=== PATIENT | male | born 1985 | race Caucasian/White ===

== ENCOUNTER 2025-08-25 22:58 | Inpatient (IN) | payer BC, SELFPAY ==
[2025-08-25] VITALS (7 sets, daily range): BP systolic 118–163; BP diastolic 65–88; BMI 55.5
[2025-08-25 19:25] LABS: Hematocrit 32.2 % (39.0-52.0); Hemoglobin 11.5 g/dL (13.0-18.0); Mean Corp Hgb Conc. 35.7 g/dL (33.0-37.0); Mean Corpuscular Volume 89.0 fL (80.0-94.0); Nucleated Red Blood Cells % 0 % (-); Platelet Count 102 10^3/uL (130-400); Red Cell Dist. Width 12.0 % (11.5-14.5)
[2025-08-25 19:35] LABS: INR 1.27; PT 16.4 Sec (11.4-14.6)
[2025-08-25 19:36] LABS: APTT 40.2 Sec (23.4-35.0)
[2025-08-25 19:49] LABS: ALT (SGPT) 67 U/L (0-50); AST (SGOT) 286 U/L (17-59); Albumin 4.3 g/dl (3.5-5.0); Alkaline Phosphatase 61 U/L (38-126); Blood Urea Nitrogen 63 mg/dl (9-20); Calcium 7.4 mg/dl (8.4-10.2); Carbon Dioxide 11 mmol/L (22-30); Chloride 70 mmol/L (98-107); Glucose 79 mg/dl (70-99); Potassium 4.1 mmol/L (3.5-5.1); Sodium 103 mmol/L (135-145); Total Protein 7.2 g/dl (6.3-8.2)
[2025-08-25 19:56] LABS: eGFR 10.07
--- NOTE | 2025-08-25 20:13 | ED.GENMED ---
History of Present Illness
General
Chief Complaint: Rectal Bleeding
Source: patient and spouse
Time Seen by Provider: 08/25/25 19:51
History of Present Illness
History of Present Illness:
40-year-old male presents to the emergency room for evaluation of diarrhea for the past 2 weeks essentially. Over the past week or so stools have had blood in them. Had multiple episodes a day. Patient is feeling fatigue and lack of energy. Over
the past couple days has been feeling short of breath and dizzy. He is noted the sensation of tension or stretching in his calfs and back. Patient has a history of diabetes and high blood pressure. Patient was hospitalized at [facility]
several years ago for a similar episode. At that time he had acute renal failure and electrolyte abnormalities. He has been taking Pepto-Bismol tablets for the diarrhea. Patient endorses fairly heavy alcohol use. He consumes about 1/5 of vodka a
day. Because of the diarrhea and other symptoms he has been consuming less alcohol. Patient had some nausea and vomiting. The vomitus is bilious in nature. He denies any significant abdominal pain.
Phy Exam
Physical Exam
Physical Exam:
General: Awake, Alert, Oriented X3. No acute distress.
Vitals: Afebrile, mildly hypertensive
Head: Atraumatic
Eyes: Pupils equal, EOMI
Throat: Airway intact, no exudates, dry mucosa
Neck: Trachea midline
Lungs: Clear and equal b/l
Heart: Regular rate, no murmurs
Abd: Soft, Nontender, No pulsatile mass
Neuro: Nonfocal
Skin: Warm, dry, no rash
Extremities: pulses equal b/l, 2+ edema
Course
Orders/Labs/Results
Orders:
Orders
08/25/25 18:29
EKG [Electrocardiogram (*1)] Urgent
Reason for Study: Shortness of Breath
IV Insert/Care/Rem.- Treatment PRN
08/25/25 18:30
EKG- Treatment ONCE
08/25/25 19:15
Type+Screen Urgent
Alcohol Urgent
Complete Blood Count/With Diff Urgent
Comprehensive Metabolic Panel Urgent
Creatine Phosphokinase Urgent
PTT Urgent
Prothrombin Time Urgent
Salicylate Urgent
08/25/25 20:02
Comprehensive Metabolic Panel Urgent
08/25/25 20:09
Bladder Scan- Treatment ONCE
Osmolality, Random Urine Urgent
Date Specimen was Collected: 08/25/25
Time Specimen was Collected: 22:26
Urinalysis Urgent
Date Specimen was Collected: 08/25/25
Time Specimen was Collected: 22:26
Urine Sodium Urgent
Date Specimen was Collected: 08/25/25
Time Specimen was Collected: 22:26
08/25/25 20:11
Add On- LAB Urgent
Tests Added?: etoh
08/25/25 20:12
CT Abd/pel Without Iv Or Oral Urgent
Comment:
Reason For Exam: acute renal failure
08/25/25 20:13
Add On- LAB Urgent
Tests Added?: cpk
08/25/25 20:15
C DIFF [C difficile Antigen & Toxins] Urgent
LALO Source: Feces/Stool
Specimen Description:
Date Specimen was Collected: 08/25/25
Time Specimen was Collected: 22:26
Stool Culture Urgent
LALO Source: Feces/Stool
Specimen Description:
Date Specimen was Collected: 08/25/25
Time Specimen was Collected: 22:26
08/25/25 20:17
CR Chest - 2 Views Urgent
Comment:
Reason For Exam: sob
08/25/25 20:18
Venous Blood Gas Urgent
%Oxygen/Room Air: ra
08/25/25 20:20
Add On- LAB Urgent
Tests Added?: salicylate level
08/25/25 21:00
3% Sodium Chloride 250 ml [Sodium Chloride 3%] 250 ml IV ONCE
08/25/25 21:02
0.9% Sodium Chloride 1000 ml [Nss] 1,000 ml IV BOLUS
08/25/25 21:15
0.9% Sodium Chloride 1000 ml [Nss] 1,000 ml IV 200 mls/hr
08/25/25 21:41
Urine Creatinine Routine
Date Specimen was Collected: 08/25/25
Time Specimen was Collected: 22:27
08/25/25 22:05
0.9% Sodium Chloride 1000 ml [Nss] 1,000 ml IV BOLUS
Abnormal Lab Results
08/25/25 08/25/25 08/25/25
19:15 20:02 20:18
RBC 3.62 L 10^6/uL
(4.70-6.10)
Hgb 11.5 L g/dL
(13.0-18.0)
Hct 32.2 L %
(39.0-52.0)
MCH 31.8 H pg
(27.0-31.0)
Plt Count 102 L 10^3/uL
(130-400)
Absolute Lymphs (auto) 0.2 L 10^3/uL
(1.2-3.4)
Neutrophils % 88.6 H %
(42.2-75.2)
Lymphocytes % 3.8 L %
(20.5-51.1)
PT 16.4 H Sec
(11.4-14.6)
APTT 40.2 H Sec
(23.4-35.0)
VBG pH 7.24 L
(7.32-7.43)
VBG pCO2 31 L mmHg
(35-48)
VBG pO2 84 H mmHg
(30-50)
VBG HCO3 13.3 L mmol/L
(22-27)
Sodium 103 L* mmol/L 104 L* mmol/L
(135-145) (135-145)
Chloride 70 L mmol/L 69 L mmol/L
(98-107) (98-107)
Carbon Dioxide 11 L* mmol/L 14 L* mmol/L
(22-30) (22-30)
BUN 63 H mg/dl 65 H mg/dl
(9-20) (9-20)
Creatinine 6.6 H* mg/dL 6.8 H* mg/dL
(0.7-1.3) (0.7-1.3)
Calcium 7.4 L mg/dl 7.6 L mg/dl
(8.4-10.2) (8.4-10.2)
Total Bilirubin 2.5 H mg/dl 2.6 H mg/dl
(0.2-1.3) (0.2-1.3)
AST 286 H U/L 288 H U/L
(17-59) (17-59)
ALT 67 H U/L 67 H U/L
(0-50) (0-50)
Creatine Kinase 19541 H U/L
(55-170)
Salicylates < 1.0 L mg/dl
(2.0-20.0)
08/25/25 20:00
08/25/25 20:02
Vital Signs
Initial and Last Documented VS:
Initial Vital Signs
Temp Pulse Resp BP Pulse Ox
97.9 F 103 26 163/88 96
08/25/25 18:26 08/25/25 18:26 08/25/25 18:26 08/25/25 18:26 08/25/25 18:26
Last Documented Vital Signs
Temp Pulse Resp BP Pulse Ox
97.9 F 97 22 121/77 96
08/25/25 18:26 08/25/25 22:00 08/25/25 22:00 08/25/25 22:00 08/25/25 22:26
MDM/Problems Addressed
Differential Diagnosis Includes:
Acute colitis, diverticular bleed, hemorrhoidal bleeding, symptomatic anemia
MDM/Problems Addressed:
Patient presents emergency room complaining of diarrhea with some bloody stools for the past 2 weeks. Patient began feeling short of breath, weak and dizzy. Labs obtained in triage were quite abnormal. Fortunately his hemoglobin is fine at 11.5.
His white count is normal. Platelet count is mildly low at 102. Chemistries are markedly abnormal. Initial sodium was measured at 103 Chloride at 70, bicarb of 11. BUN and markedly elevated as well at 63 and 6.6. Given the significant
abnormalities of the blood work repeat specimen was sent which essentially confirmed these findings. Suspect the patient has become profoundly hyponatremic from fluid loss and solute loss via diarrhea. Patient has been drinking a lot of water
resulting in dilution of his electrolytes particularly sodium. Case discussed with nephrology, Dr. Nguyễn. He recommends fluid resuscitation with normal saline. We discussed hypertonic saline given the extent to which the patient has hyponatremia.
However he was concerned the patient may correct too rapidly. Dr. Donaldson actually came to the emergency room to evaluate the patient. Patient admitted to the intensive care unit. Hospitalist came to evaluate the patient as well.
*Radiology
Radiology exam reviewed: radiology read reviewed
*Pulse Oximetry
SaO2: 96
Oxygen Mode of Delivery: Room air
Patient hypoxic: no
*EKG
Interpreted by ED Provider?: Yes
Heart Rate: 96
Rate: normal
Rhythm: sinus
Interval: first degree heart block
QRS Pattern: normal QRS
Ischemia: non-specific ST changes
*Lithographic Press Operator Apprentice Interpretation
Rate: normal
Interpretation: normal
Rhythm: sinus
*Critical Care Note
Total Time (30-74mins, 75-104mins- exclusive of procedures): 45 min
comment:
Critical care statement: A total of 45 minutes of critical care time was provided for this patient. This includes management of unstable vital signs, evaluation of the patient at bedside, reviewing the patient's pertinent medical records, discussion
with consultants, review of old EKGs and review of pertinent medical records. This time with separate from time utilized to perform the aforementioned documented procedures
ED Attending Note
-
Portions of this chart may have been created with voice recognition software.� Occasional wrong word or��sound alike� substitutions may have occurred due to the inherent limitations of voice recognition software.
Discharge Plan
Departure
Patient Disposition: Admit
Date of Disposition: 08/25/25
Time of Disposition: 21:06
Admit to: ICU
Presentation/result/management discussed w/ accepting MD/DO: Hospitalist
Condition: Critical
Discharge Problem:
Acute hyponatremia, Acute renal failure (ARF), Acute colitis
Prescriptions:
No Action
atorvastatin 40 mg Tablet
40 mg PO DAILY
glipizide 10 mg Tablet
10 mg PO DAILY
metformin 1,000 mg Tablet
1,000 mg PO DAILY
sertraline 25 mg Tablet
25 mg PO DAILY
gabapentin 100 mg Capsule
100 mg PO DAILY
olmesartan 20 mg Tablet
20 mg PO DAILY
fenofibrate 150 mg Capsule
145 mg PO DAILY
Jardiance 10 mg Tablet
10 mg PO DAILY
Mounjaro 7.5 mg/0.5 mL Pen Injector
7.5 mg SC QWEEK
Referrals:
Homer Aquino MD [Family Provider]
Interventions
Interventions:
*Risk Screen - Suicide Last Done: 08/25/25 18:26
*General Assessment Last Done: 08/25/25 18:26
*Neglect/Abuse Screening Last Done: 08/25/25 18:26
*ED- Fall Risk Assessment Last Done: 08/25/25 19:06
*ED COVID-19 Vaccine History Last Done: 08/25/25 19:06
*ED Influenza Vaccine History Last Done: 08/25/25 19:06
KV-Kkovji-Usngqweopt Assessment Last Done: 08/25/25 19:02
ED- Cardiac Assessment Last Done: 08/25/25 19:02
ED- Pulmonary Assessment Last Done: 08/25/25 19:02
Discharge Date and Time
Print Language: PERUVIAN
[2025-08-25 20:22] LABS: Venous Blood Gas B.E. -12.9 mmol/L (-4 to +4); Venous Blood Gas O2 Sat % 96.7 %
[2025-08-25 20:45] LABS: ALT (SGPT) 67 U/L (0-50); AST (SGOT) 288 U/L (17-59); Albumin 4.4 g/dl (3.5-5.0); Alkaline Phosphatase 60 U/L (38-126); Blood Urea Nitrogen 65 mg/dl (9-20); Calcium 7.6 mg/dl (8.4-10.2); Carbon Dioxide 14 mmol/L (22-30); Chloride 69 mmol/L (98-107); Estimated Creatinine Clearance 20 ml/min; Glucose 75 mg/dl (70-99); Potassium 4.1 mmol/L (3.5-5.1); Sodium 104 mmol/L (135-145); Total Protein 7.3 g/dl (6.3-8.2); eGFR 9.72
[2025-08-25 20:53] LABS: Salicylate < 1.0 mg/dl (2.0-20.0)
[2025-08-25] MEDS: SODIUM CHLORIDE 3% 250 IV (20:56)
[2025-08-25] MEDS: NSS 1000 IV ×2 (21:06→22:16)
--- NOTE | 2025-08-25 22:06 | HPS.HSE ---
Family Physician
-
Family Physician: Homer Aquino
Chief Complaint
-
Diarrhea
History of Present Illness
This is a 40-year-old male with past medical history significant for diabetes, hyperlipidemia, hypertension who presents to the emergency department with 2 weeks of persistent diarrhea which is nonbloody.
Patient reported that diarrhea started about 2 weeks ago. Initially it was watery going up to 10 times a day and during the night as well. Now he has intermittent bright red blood per rectum with diarrhea. He has a history of hemorrhoids and he
last had a colonoscopy about 5 years ago which confirmed internal hemorrhoids. Despite diarrhea patient has been able to tolerate oral intake but he has only been taking in water. Spouse reports that he takes about 60 to 90 ounces of water with
ice every day in addition to 1/2 pint of vodka. He also mixes vodka with some Gatorade. He has not been taking oral p.o. in part due to taking Mounjaro which he has been on for over a year. Sertraline was recently started. But it has been held
for the last few days. Denies any known sick contacts. Denies having fevers. He has had occasional chills. He reports that he has been fishing more recently and does have an aquarium at home. He denies any other exposures. Denies dizziness or
lightheadedness at this time. Last alcohol drink was about 1 year ago.
In the emergency department patient was afebrile, blood pressure was 118/70 supine with a pulse of 98 and satting 96% on room air. CBC was unremarkable. Electrolytes notable for a sodium of 104 bicarb of 14 BUN of 67 and a creatinine of 6.8.
Glucose was 75. Calcium 7.6. CK was elevated at 11,000. pH 7.2 follow-up with pCO2 of 31 and a bicarb of 13. Anion gap was 20.
A CT of the abdomen pelvis showing severe bilateral renal and perirenal edema, mild distention of the right intrarenal collecting system and right renal pelvis. There is mild acute pancolitis.
Medical History
Past Medical History
Past Medical History: Reports HTN, Hypercholesterolemia and NIDDM
Past Surgical History: Reports None
Social History
Tobacco: Non-smoker
Alcohol: Daily
Drug: None
Personal:
Living: With Family
Family History
Family History: Not pertinent
Allergies / Home Medications
Allergies reflects when Allergies were last updated in [facility].
Home Medications with original date entered in [facility]
Allergy/Medication List:
Allergies
Allergy/AdvReac Type Severity Reaction Status Date / Time
No Known Allergies Allergy Unverified 08/25/25 18:29
Home Medications
atorvastatin 40 mg tablet 40 mg PO DAILY 08/25/25
empagliflozin 10 mg tablet (Jardiance) 10 mg PO DAILY 08/25/25
fenofibrate 150 mg capsule 145 mg PO DAILY 08/25/25
gabapentin 100 mg capsule 100 mg PO DAILY 08/25/25
glipizide 10 mg tablet 10 mg PO DAILY 08/25/25
metformin 1,000 mg tablet 1,000 mg PO DAILY 08/25/25
olmesartan 20 mg tablet 20 mg PO DAILY 08/25/25
sertraline 25 mg tablet 25 mg PO DAILY 08/25/25
tirzepatide 7.5 mg/0.5 mL subcutaneous pen injector (Mounjaro) 7.5 mg SC QWEEK 08/25/25
Review of Systems
-
Constitutional: Reports No Symptoms
EENT: Reports No Symptoms
Respiratory: Reports No Symptoms
Cardiac: Reports No Symptoms
Abdomen/GI: Reports Diarrhea and Bloody Stools; Denies Abdominal Pain
: Reports No Symptoms
Musculoskeletal: Reports No Symptoms; Denies Joint Pain, Joint Swelling, Muscle Pain, Muscle Stiffness or Edema
Skin: Denies Rash
Neurological: Reports No Symptoms
Endocrine: Reports No Symptoms
Hematologic/Lymphatic: Reports No Symptoms
Psych: Reports No Symptoms
Physical Exam
Vital Signs
Vital Signs
Temp Pulse Resp BP Pulse Ox
97.9 F 98 14 118/70 96
08/25/25 18:26 08/25/25 21:15 08/25/25 21:15 08/25/25 21:00 08/25/25 21:15
Physical Exam
General: Well Developed, Well Nourished and No Apparent Distress
HEENT: NormoCephalic, Moist mucous membranes and Atraumatic
Respiratory: Clear
Cardiac: S1/S2 and Regular Rhythm; No Murmur or Rub
GI: Soft, Non Tender, Non Distended and Normal Bowel Sounds; No Organomegaly
Rectal: Deferred by Provider
Musculoskeletal: No Clubbing, No Cyanosis and No Edema
Skin: No Rash
Neuro: AO x 3 and Nonfocal/grossly intact
Psych: Calm
Laboratory Results
-
08/25/25 20:00
08/25/25 20:02
Laboratory Results
PT 16.4 Sec (11.4-14.6) H 08/25/25 19:15
INR 1.27 08/25/25 19:15
APTT 40.2 Sec (23.4-35.0) H 08/25/25 19:15
Total Bilirubin 2.6 mg/dl (0.2-1.3) H 08/25/25 20:02
AST 288 U/L (17-59) H 08/25/25 20:02
ALT 67 U/L (0-50) H 08/25/25 20:02
Alkaline Phosphatase 60 U/L (38-126) 08/25/25 20:02
Data Reviewed
-
CT Scan: Report Reviewed by me
Medical Tests (Nuc Med, Echo, EKG etc): Image Personally Visualized and interpreted
Lab Data: Labs Reviewed by me
Old Records: Reviewed
Impression/Plan
-
IMPRESSION:
40-year-old with history of ofu-uswvyih-jfdkurtnh diabetes hypertension, hyperlipidemia who presents to the Emergency Department with 2 weeks of diarrhea and found to have NICOLAS as well severe hyponatremia.
PLAN:
Hyponatremia -sodium 104. Patient alert and oriented and with normal mental status. No history of seizures. He is on sertraline. Suspect this is a mixture of hypovolemic hyponatremia with polydipsia and also complicated by inability to excrete
free water in the setting of renal failure. By history is markedly dehydrated. He has been seen by nephrology and appreciate recommendations.
-Admit to IMU due to frequent serum chemistry
-Replete crystalloids per nephrology 5 L total of NS continued
- Urine osms, urine sodium, TSH and cortisol
-Monitor serum sodium every 4 hours
Diarrhea -acute to subacute diarrhea and occasionally bloody
- C. difficile, stool cultures, stool WBC, fecal calprotectin
-Stool O&P
- History of colonoscopy about 5 years ago which was negative for IBD
- hold antibiotics pending results of cultures
- Given severity of diarrhea and blood (known internal hemorrhoid) = consult GI
- Diet as tolerated for with free water restriction
NICOLAS -suspect ATN in the setting of severe diarrhea, diabetes and ARB use but clearly still volume down. Unclear if oliguric at this time. CPK of 11,000, possible rhabdo contributing to the NICOLAS unclear
- Check urine creatinine and sodium for FENa
- IV fluids as above per nephrology
- UA, inflammatory panel with RF, CARLITOS, Complement C3/4, ASO.
Rhabdo - No history of crush syndrome, seizures or fevers
- hold atorvastatin
- inflammatory panel as above
- trend ck q 12 to daily for now
- IV fluids
DM II
- hold metformin
- sliding scale insulin
ETOH dependence - last drink 24 hours ago
- MSAS protocol
--- NOTE | 2025-08-25 22:25 | W.CON.NEPH ---
Consultation
-
Date/Time Consultation Requested: 08/25/2025 9 PM
Date/Time Consultation Performed: 08/25/2025 10 PM
Requesting Provider: Dr. Ng
Performing Provider: Dr. Nguyễn
Reason for Consultation: NICOLAS
Medical History
-
Chief Complaint: Diarrhea
History of Present Illness:
This is a 40-year-old gentleman who has diabetes mellitus type 2 for the last 13 years treated with insulin therapy as well as metformin and Mounjaro. He is also on Jardiance. He does not check his sugars very often. About 4 weeks ago he had a
hypoglycemic episode and his glipizide was discontinued. He checked his sugars a few more times until they were normal and then stop checking. He has hypertension also for the same amount of time on a mild therapy regimen alone with olmesartan.
He also has hyperlipidemia which is controlled with statin therapy and fenofibrate. He does have diabetic neuropathy for which he takes gabapentin. For the last 9 to 14 days he has had increasing amounts of diarrhea which is typically watery in
nature. At least 5 times per day and more recently up to 10 times per day. His appetite is decreased and his intake of solid foods has also declined. He tries to drink enough fluid and over the course of a day will drink 750 mL of vodka, 40
ounces of Gatorade, over 100 ounces of water. He is not left at home because of the frequency of diarrhea. He denies any falls or orthostasis. He did have an injury though this was back when he was hypoglycemic. Given the persistent diarrhea you
came to the emergency room for evaluation. He was found to have a sodium level of 104 with a creatinine of 6.8. He also had anion gap metabolic acidosis. His LFTs are elevated though not Nestl� more than usual for him outpatient blood work he
says was due to his increased alcohol intake. He is noted also to have rhabdomyolysis with a CPK greater than 11,000.
Past Medical History
Diabetes mellitus type 2
Obesity
Hyperlipidemia
Hypertension
Neuropathy
COVID
Anxiety/depression
Social History
Tobacco: Non-Smoker
Alcohol: Daily
Family History
No CKD
Family History: Not Pertinent
Allergies / Home Medications
Allergy/AdvReac Type Severity Reaction Status Date / Time
No Known Allergies Allergy Unverified 08/25/25 18:29
�Medication �Instructions �Recorded �Confirmed �Type
atorvastatin 40 mg tablet 40 mg PO DAILY 08/25/25 08/25/25 History
empagliflozin 10 mg tablet 10 mg PO DAILY 08/25/25 08/25/25 History
(Jardiance)
fenofibrate 150 mg capsule 145 mg PO DAILY 08/25/25 08/25/25 History
gabapentin 100 mg capsule 100 mg PO DAILY 08/25/25 08/25/25 History
glipizide 10 mg tablet 10 mg PO DAILY 08/25/25 08/25/25 History
metformin 1,000 mg tablet 1,000 mg PO DAILY 08/25/25 08/25/25 History
olmesartan 20 mg tablet 20 mg PO DAILY 08/25/25 08/25/25 History
sertraline 25 mg tablet 25 mg PO DAILY 08/25/25 08/25/25 History
tirzepatide 7.5 mg/0.5 mL 7.5 mg SC QWEEK 08/25/25 08/25/25 History
subcutaneous pen injector
(Izabela)
Review of Systems
-
No mental status changes according to the
No pain, no shortness of breath
Denies issues with urination though frequency has decreased but color has not changed
All other systems: Negative unless noted
Physical Exam
Vital Signs
Vital Signs
Temp Pulse Resp BP Pulse Ox
97.9 F 98 14 118/70 96
08/25/25 18:26 08/25/25 21:15 08/25/25 21:15 08/25/25 21:00 08/25/25 21:15
Lab Results
WBC Cancelled 08/25/25 20:00
RBC Cancelled 08/25/25 20:00
Hgb Cancelled 08/25/25 20:00
Hct Cancelled 08/25/25 20:00
Plt Count Cancelled 08/25/25 20:00
Sodium 104 mmol/L (135-145) L* 08/25/25 20:02
Potassium 4.1 mmol/L (3.5-5.1) 08/25/25 20:02
Chloride 69 mmol/L (98-107) L 08/25/25 20:02
Carbon Dioxide 14 mmol/L (22-30) L* 08/25/25 20:02
BUN 65 mg/dl (9-20) H 08/25/25 20:02
Creatinine 6.8 mg/dL (0.7-1.3) H* 08/25/25 20:02
eGFR 9.72 08/25/25 20:02
Glucose 75 mg/dl (70-99) 08/25/25 20:02
Calcium 7.6 mg/dl (8.4-10.2) L 08/25/25 20:02
Albumin 4.4 g/dl (3.5-5.0) 08/25/25 20:02
Laboratory Tests
08/25/25
19:15
Creatine Kinase 99124 H
Salicylates < 1.0 L
Alcohol, Quantitative 59
CT abdomen pelvis without contrast 08/25/2025
IMPRESSION:
1. SEVERE BILATERAL RENAL and PERIRENAL EDEMA. Mild distention of the right intrarenal collecting system and right renal pelvis. Diagnostic possibilities are (1) acute bilateral infectious pyelonephritis or (2) an acute inflammatory renal disease
(vasculitis or connective tissue disease).
2. MILD ACUTE PANCOLITIS (either infectious or inflammatory in etiology).
3. Severe diffuse hepatic steatosis.
4. Severe hepatomegaly.
5. Moderate splenomegaly.
6. Mild acute cystitis.
7. 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
Physical Exam
Patient is awake alert oriented and in no distress. Mood and affect were pleasant, insight and judgment were good. Pupils are equal round and reactive to light, extraocular movements are intact, sclera were anicteric. Hearing was normal, ears and
nose are intact. Oropharynx was clear. Neck was supple with trachea midline and no thyromegaly. Heart was regular rate and rhythm without rubs. Lower extremities without edema. Lungs were clear to auscultation bilaterally and with normal
excursion. Abdomen was soft, nontender, with normal active bowel sounds, and no hepatosplenomegaly. Skin was without rash and with normal turgor.
Data Reviewed
-
Radiology: Image Personally Visualized and interpreted (Chest x-ray 08/25/2025 by reading elevated right hemidiaphragm no acute disease)
CT Scan: Report Reviewed by me
Medical Tests (Nuc Med, Echo etc): Image Personally Visualized and interpreted (EKG 08/25/2025 by my reading sinus rhythm first-degree AV block nonspecific interventricular conduction delay, lateral ST elevation)
Labs: Labs Reviewed by me
Old Records: Reviewed
Assessment/Plan
-
Assessment
Colitis
Large-volume diarrhea
Hyponatremia
Anion gap metabolic acidosis
Acute kidney injury
Rhabdomyolysis
Elevated liver function tests
Chronic alcohol use
Diabetes mellitus type 2
Hypertension
Hyperlipidemia
Plan
Volume resuscitation with saline at this time up to 5 L
Follow BMP every 4 hours
Check lactate
Check urine studies, straight cath if needed
PVR was only 72 cc
Check phosphate
No emergent need for dialysis currently.
Avoid hypertonic saline at this point until urine studies return and urine output trend is established
I discussed with the patient and his the possible need for dialysis should his renal function fail to improve. This would also need to be entertained if there is consideration for metformin toxicity based on evolution of his acid-base balance
over time.
Critical care time spent 45 minutes
[2025-08-25 22:42] LABS: Urine Character Clear (Clear)
[2025-08-25 22:50] LABS: Urine Squamous Cell 0-2 /LPF (Few)
[2025-08-25 22:52] LABS: Urine White Cell 0-2 /HPF (0-5)
[2025-08-25 23:56] LABS: Glucose - Point of Care 82 mg/dl (70-99)
[2025-08-26] VITALS (18 sets, daily range): BP systolic 108–169; BP diastolic 59–120; BMI 39.5
[2025-08-26] MEDS: NSS 1000 IV (00:31)
[2025-08-26 01:00] LABS: Blood Urea Nitrogen 64 mg/dl (9-20); Calcium 7.3 mg/dl (8.4-10.2); Carbon Dioxide 11 mmol/L (22-30); Chloride 71 mmol/L (98-107); Glucose 76 mg/dl (70-99); Potassium 4.0 mmol/L (3.5-5.1); Sodium 105 mmol/L (135-145)
[2025-08-26] MEDS: HEPARIN 5000 UNITS SC (01:10)
[2025-08-26] MEDS: NSS 2000 IV (01:10)
[2025-08-26 01:12] LABS: Estimated Creatinine Clearance 21 ml/min; eGFR 10.26
--- NOTE | 2025-08-26 01:14 | PTCARENOTE ---
rec'd pt from ER. full assessment documented. continue orders to finish 5L NS bolus. pt oriented x3, at bedside. updated on plan of care overnight. BMP sent. SR on monitor. on RA, SOB noted w/ exertion. pt ambulated to BR for bowel movement.
MSAS 3. call melchor in reach.
--- NOTE | 2025-08-26 02:02 | PTCARENOTE ---
pt with small bloody liquid BM, stool sample sent, ICU CHEMICAL LAB SUPERVISOR made aware.
[2025-08-26] MEDS: CALCIUM GLUCONATE 130 MG IV ×2 (02:29→06:08)
[2025-08-26] MEDS: ATIVAN 1 MG PO ×2 (04:23→20:28)
--- NOTE | 2025-08-26 04:33 | PTCARENOTE ---
AM labs sent. MSAS 6, PO ativan given. pt OOB in chair. calcium repleted overnight. call melchor in reach.
[2025-08-26 04:40] LABS: Hematocrit 28.0 % (39.0-52.0); Hemoglobin 10.2 g/dL (13.0-18.0); Mean Corp Hgb Conc. 36.4 g/dL (33.0-37.0); Mean Corpuscular Volume 89.5 fL (80.0-94.0); Platelet Count 96 10^3/uL (130-400); Red Cell Dist. Width 11.9 % (11.5-14.5)
[2025-08-26 04:51] LABS: INR 1.42; PT 17.8 Sec (11.4-14.6)
[2025-08-26 04:52] LABS: APTT 39.5 Sec (23.4-35.0)
[2025-08-26 05:19] LABS: Albumin 3.8 g/dl (3.5-5.0); Blood Urea Nitrogen 63 mg/dl (9-20); Calcium 7.3 mg/dl (8.4-10.2); Carbon Dioxide 10 mmol/L (22-30); Chloride 77 mmol/L (98-107); Estimated Creatinine Clearance 22 ml/min; GGTP 277 U/L (15-73); Glucose 74 mg/dl (70-99); LDH 440 U/L (120-246); Magnesium 1.1 mg/dl (1.6-2.3); Potassium 4.0 mmol/L (3.5-5.1); Sodium 108 mmol/L (135-145); eGFR 10.07
[2025-08-26 05:27] LABS: Cortisol, Random 52.9 ug/dl; TSH 3.56 uIU/ml (0.47-4.68)
[2025-08-26] MEDS: MAGNESIUM SULFATE 50 IV ×2 (05:57→13:28)
[2025-08-26] MEDS: SODIUM BICARBONATE 1150 MEQ IV ×3 (06:07→23:51)
--- NOTE | 2025-08-26 06:26 | CON.GI ---
Addendum entered and electronically signed by Emil Lawson MD 08/26/25 16:07:
I saw and examined the patient.
The PA's note was reviewed and I agree with the note.
Comment:
Pt is a 40 year old male with h/o HTN, hyperlipidemia, GERD, DM, major depression d/o, anxiety, EUNICE, and ETOH abuse who p/w diarrhea and rectal bleeding. Has been drinking significant amount of alcohol since job loss in May, perhaps combined
with depression. Started Zoloft about 3 weeks ago. Admits to some NSAID use. On admission he's noted to have profound hyponatremia (Na 103), CK 11k. CT abd showed severe b/l renal/urban renal edema and features concerning for acute b/l infectious
pyelonephritis vs inflammatory, mild acute pancolitis, severe hepatic steatosis and splenomegaly.
Impression / Rec:
1. Diarrhea - has associated pancolitis noted from CT, the etiology is unclear. Stool studies pending. Since admission, diarrhea/rectal bleeding is slowing down. In current clinical picture, mx conservatively for now, can [place] pass back once his
hyponatremia/rhabo are mx'ed first.
2. Alcoholic hepatitis - significant drinking and on admission he's noted to have elevated LFT in alc hep pattern. DF is < 32, no steroid indicated. Monitor for alcohol withdrawal. Thiamine/folate. Alcohol counseling.
3. Hyponatremia - mx as per ICU
4. Rhabdomyolysis - mx as per ICU
Addendum entered and electronically signed by SADAF Neil 08/26/25 14:14:
reviewed with Dr. Lawson likely component of ETOH hepatitis. DF with control of 13 is 24.7 no role for steroids. Reviewed with Dr. Dmitry brewer for abx as still with some rectal bleeding and pancolitis though not pain on exam.
Original Note:
Consultation
-
Date/Time Consultation Requested: 08/25/25 4390
Date/Time Consultation Performed: 08/26/25 0630
Requesting Provider: Gabriella Gonzalez MD
Performing Provider: SADAF Griffin, Emil Lawosn MD
Reason for Consultation: pancolitis, diarrhea
Medical History
Chief Complaint / HPI
Chief Complaint: blood diarrhea
History of Present Illness:
Pt is a 40yo with hx HTN, hyperlipidemia, GERD, NIDDM, major depression disorder, anxiety, sleep apnea, umbilical hernia, obesity, TMJ, prior covid and ETOH abuse. Per PCP noted with wt job loss in May with concern for depression issues. Pt
has labs 3 weeks ago with Na 137, K 4.3, glucose 109, cl 99, BUN 15, creat 1.01 bili 1.3, AST 128, ALT 69 , alk phos 52 with normal CBC. He now presents with 2 weeks of diarrhea and rectal bleeding and on admission admit to taking water with vodka
and Gatorade. On admission noted with Na 103, K 4.1, cl 70, co2 11, BUN 63, creat 6.6, calcium 7,4, bili 2.5, AST 286, ALT 67, alk phos 61, INR 1.42, CK 11,088, hbg 11.5. WBC 5.3, platelet 102. CT on admission with noted severe b; renal and
perirenal edema with mild distention of right intrarenal collecting system with right renal pelvis with concern for acute b/l infectious pyelonephritis vs inflammatory renal disease. mild acute pancolitis, severe hepatic steatosis, hepatomegaly,
splenomegaly, acute cystitis and spondylolysis.
In review with patient he admits to hx heavy ETOH use. With job loss in May he may have been drinking more. He also admits to newly starting Zoloft about 3 weeks ago and seeking counseling for depression. [place]
and 2 days after noted onset of diarrhea. Over then next several days noted small amount of blood then blood became severe with continued diarrhea now at day 14 after onset. He admits with hx GERD, and vomiting some bilious material but denies
odynophagia, dysphagia, abdominal pain, prior issue with diarrhea or constipation in past. + Aleve use several times per week. Pt admits to colonoscopy around 2020 with bleeding and hemorrhoids. No hx EGD.
Past Medical History
Past Medical History: GERD, Hypercholesterolemia, NIDDM, Psychiatric (major depression disorder, anxiety, TMJ) and Other (umbilical hernia, sleep apnea, ETOH abuse, neuropathy, obesity )
Social History
Tobacco: Former Smoker (college )
Alcohol: Daily (4 large vodka drinks daily)
Drug: Former User (college )
Personal:
Living: With Family
Employment: Not Employed
Family History
Family History: Other (no family hx GI issues )
Allergies / Home Medications
Allergy/AdvReac Type Severity Reaction Status Date / Time
No Known Allergies Allergy Unverified 08/25/25 18:29
�Medication �Instructions �Recorded
atorvastatin 40 mg tablet 40 mg PO DAILY 08/25/25
empagliflozin 10 mg tablet 10 mg PO DAILY 08/25/25
(Jardiance)
fenofibrate 150 mg capsule 145 mg PO DAILY 08/25/25
gabapentin 100 mg capsule 100 mg PO DAILY 08/25/25
glipizide 10 mg tablet 10 mg PO DAILY 08/25/25
metformin 1,000 mg tablet 1,000 mg PO DAILY 08/25/25
olmesartan 20 mg tablet 20 mg PO DAILY 08/25/25
sertraline 25 mg tablet 25 mg PO DAILY 08/25/25
tirzepatide 7.5 mg/0.5 mL 7.5 mg SC QWEEK 08/25/25
subcutaneous pen injector
(Izabela)
Review of Systems
-
History Source: Patient
Constitutional: Reports Weight Gain and Fatigue
EENT: Reports No Symptoms
Respiratory: Reports No Symptoms
Abdomen/GI: Reports Nausea, Vomiting (bile), Diarrhea and Bloody Stools
: Reports Other (decreased urination )
Musculoskeletal: Reports No Symptoms
Skin: Reports No Symptoms
Neurological: Reports Weakness
Endocrine: Reports No Symptoms
Hematologic/Lymphatic: Reports Bleeding
Vital Signs
Temp Pulse Resp BP Pulse Ox
98.8 F 107 24 145/59 94
08/26/25 03:26 08/26/25 06:01 08/26/25 06:01 08/26/25 06:01 08/26/25 06:01
Physical Exam
Exam
General: Well Developed, Well Nourished and Other (awake and alert)
HEENT: Normocephalic and Anicteric
Respiratory: Wheezes
Cardiac: Other (tachy)
GI: Soft, Non Tender, Distended and Other (large abdomen )
Rectal: Other
Musculoskeletal: No Clubbing and No Cyanosis
Skin: Warm and Dry
Neuro: Awake, Alert, AO x 3 and Other (slight twitching in coversation)
Psych: Calm
Results
WBC 4.8 10^3/uL (4.8-10.8) 08/26/25 04:17
Hgb 10.2 g/dL (13.0-18.0) L 08/26/25 04:17
Hct 28.0 % (39.0-52.0) L 08/26/25 04:17
MCV 89.5 fL (80.0-94.0) 08/26/25 04:17
Plt Count 96 10^3/uL (130-400) L 08/26/25 04:17
Absolute Neuts (auto) Cancelled 08/25/25 20:00
PT 17.8 Sec (11.4-14.6) H 08/26/25 04:17
INR 1.42 08/26/25 04:17
APTT 39.5 Sec (23.4-35.0) H 08/26/25 04:17
Sodium 108 mmol/L (135-145) L* 08/26/25 04:17
Potassium 4.0 mmol/L (3.5-5.1) 08/26/25 04:17
Chloride 77 mmol/L (98-107) L 08/26/25 04:17
Carbon Dioxide 10 mmol/L (22-30) L* 08/26/25 04:17
BUN 63 mg/dl (9-20) H 08/26/25 04:17
Creatinine 6.6 mg/dL (0.7-1.3) H* 08/26/25 04:17
Calcium 7.3 mg/dl (8.4-10.2) L 08/26/25 04:17
Total Bilirubin 2.6 mg/dl (0.2-1.3) H 08/25/25 20:02
AST 288 U/L (17-59) H 08/25/25 20:02
ALT 67 U/L (0-50) H 08/25/25 20:02
Alkaline Phosphatase 60 U/L (38-126) 08/25/25 20:02
Diagnostic Image Results:
08/25/25 CT Abd/pel Without Iv Or Oral
1. SEVERE BILATERAL RENAL and PERIRENAL EDEMA. Mild distention of the right intrarenal collecting system and right renal pelvis. Diagnostic possibilities are (1) acute bilateral infectious pyelonephritis or (2) an acute inflammatory renal disease
(vasculitis or connective tissue disease).
2. MILD ACUTE PANCOLITIS (either infectious or inflammatory in etiology).
3. Severe diffuse hepatic steatosis.
4. Severe hepatomegaly.
5. Moderate splenomegaly.
6. Mild acute cystitis.
7. 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
08/25/25 CXR
1. Moderate elevation of the anterior right hemidiaphragm.
2. Normal heart size without evidence for acute pulmonary edema.
3. No radiographic evidence for pneumonia or pleural effusion.
Prior GI Procedures:
EGD: none
Colonoscopy: around 2020 with hemorroids
Assessment / Plan
-
Pt is a 40yo with hx HTN, hyperlipidemia, GERD, NIDDM, major depression disorder, anxiety, sleep apnea, umbilical hernia, obesity, TMJ, prior covid and ETOH abuse. Per PCP noted with wt job loss in May with concern for depression issues. Pt
has labs 3 weeks ago with Na 137, K 4.3, glucose 109, cl 99, BUN 15, creat 1.01 bili 1.3, AST 128, ALT 69 , alk phos 52 with normal CBC. He now presents with 2 weeks of diarrhea with rectal bleeding and on admission admit to taking water with vodka
and Gatorade. On admission noted with Na 103, K 4.1, cl 70, co2 11, BUN 63, creat 6.6, calcium 7,4, bili 2.5, AST 286, ALT 67, CK 11,088, INR 1.42, alk phos 61 hbg 11.5. WBC 5.3, platelet 102. CT on admission with noted severe b; renal and
perirenal edema with mild distention of right intrarenal collecting system with right renal pelvis with concern for acute b/l infectious pyelonephritis vs inflammatory renal disease. mild acute pancolitis, severe hepatic steatosis, hepatomegaly,
splenomegaly, acute cystitis and spondylolysis.
-severe hyponatremia with Na 103 on admission
-NICOLAS
-metabolic acidosis
-rhabdomyolysis
-hypomagnesemia
-diarrhea with rectal bleeding
-pancolitis
-ETOH abuse
-increased LFT's
-mild coagulopathy
other med problems:
-HTN
-hyperlipidemia
- GERD
- NIDDM
- major depression disorder
-anxiety
-sleep apnea
-umbilical hernia
-obesity
-TMJ
-prior covid
PLAN:
concern for severe hyponatremia, NICOLAS with rhado on admission
from GI standpoint noted diarrhea, rectal bleeding, pancolitis and concern for ETOH abuse with increased LFT's
cont to correct acidosis and electrolyte per renal
monitor diarrhea for bleeding, volume etc - per staff only small steaks of burgundy in stools overnight - may be related to pancolitis- infectious vs other
ok for diet as tolerated
ETOH abstinence-- pt counseled
monitor for withdrawal and seizures
agree with thiamine and folate
await stool studies add Giardia/crypto/ stool WBC
pt states newly started Wellbutrin about 3 weeks ago per up to date 4-7 % diarrhea but 23 % for vomiting and up to 26 % constipation
NSAID avoidance
t/c psych eval with concern for major depression with recent job loss - pt was seeking OP counseling
-
-
Thank you for consultation and allowing me to participate in the patient's care. Please call the stitcher tape controlled machine GI physician during the after hours with any questions or concerns.
--- NOTE | 2025-08-26 07:34 | CON.INTV ---
Consultation
Consultation Request
Date/Time Consultation Requested: 08/26/2025-7 AM
Date/Time Consultation Performed: 08/26/2025-7:30 AM
Requesting Provider: hospitalist
Performing Provider: Dr. Callahan
Reason for Consultation: NICOLAS/hyponatremia/critical care management
Medical History
-
Chief Complaint: Diarrhea
History of Present Illness:
40-year-old non-smoking morbidly obese daily alcohol and taking male with a history of hypertension, hyperlipidemia, and diabetes presented with 2 weeks of persistent diarrhea that was nonbloody and found to have severe acute kidney injury, severe
hyponatremia-test man consulted for critical care management 08/26/2025. Patient sitting up out of bed and admits to some mild shortness of breath at rest but no chest pain, chest tightness, chest congestion, productive cough, abdominal pain but
admits to chronic loose diarrhea but no blood. Denies any focal weakness or increased lower extremity edema.
Past Medical History
Past Medical History: None (Morbid obesity-on [place]. EUNICE/CPAP intolerant. Hypertension. Hyperlipidemia. Diabetes. Daily EtOH.)
Social History
Tobacco: Non-smoker
Alcohol: Daily (10/24 vodka)
Drug: None
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
Living: With Family
Occupational Exposures: No known asbestos exposure
Environmental Exposures: No known tuberculosis exposure
Family History
Family History: Reviewed & Not Pertinent
Allergies / Home Medications
Allergies
Allergy/AdvReac Type Severity Reaction Status Date / Time
No Known Allergies Allergy Unverified 08/25/25 18:29
Home Medications
�Medication �Instructions �Recorded �Confirmed �Last Taken �Type
atorvastatin 40 mg tablet 40 mg PO DAILY 08/25/25 08/25/25 Unknown History
empagliflozin 10 mg tablet 10 mg PO DAILY 08/25/25 08/25/25 Unknown History
(Jardiance)
fenofibrate 150 mg capsule 145 mg PO DAILY 08/25/25 08/25/25 Unknown History
gabapentin 100 mg capsule 100 mg PO DAILY 08/25/25 08/25/25 Unknown History
glipizide 10 mg tablet 10 mg PO DAILY 08/25/25 08/25/25 Unknown History
metformin 1,000 mg tablet 1,000 mg PO DAILY 08/25/25 08/25/25 Unknown History
olmesartan 20 mg tablet 20 mg PO DAILY 08/25/25 08/25/25 Unknown History
sertraline 25 mg tablet 25 mg PO DAILY 08/25/25 08/25/25 Unknown History
tirzepatide 7.5 mg/0.5 mL 7.5 mg SC QWEEK 08/25/25 08/25/25 Unknown History
subcutaneous pen injector
(Izabela)
Review of Systems
-
Unable to Obtain full review of systems at this time due to: Other (Per HPI)
Vitals / Labs / Diagnostic Testing
Vital Signs
Temp Pulse Resp BP Pulse Ox
98.8 F 107 24 145/59 94
08/26/25 03:26 08/26/25 06:01 08/26/25 06:01 08/26/25 06:01 08/26/25 06:01
Lab Data
08/26/25 04:17
Laboratory Results
08/25/25 08/26/25
19:15 04:17
PT 16.4 H 17.8 H
INR 1.27 1.42
APTT 40.2 H 39.5 H
Diagnostic Testing:
Physical Exam
-
Exam:
Well-nourished and well-developed in no apparent distress
HEENT-atraumatic, normocephalic, thick neck
Neck-supple, no JVD, no bruit
Heart-regular rate and rhythm-no murmurs, rubs or gallops
Chest-clear to auscultation, no wheezes, crackles
Back-no tenderness
Abdomen-soft, nontender, nondistended, no hepatosplenomegaly
Extremities-no cyanosis, clubbing, trace bilateral lower extremity edema
Integument-intact, no rashes, lesions or ecchymosis
Neurology-alert and oriented, nonfocal motor and sensory exam
Assessment
-
40-year-old non-smoking morbidly obese daily alcohol and taking male with a history of hypertension, hyperlipidemia, and diabetes presented with 2 weeks of persistent diarrhea that was nonbloody and found to have severe acute kidney injury, severe
hyponatremia-test man consulted for critical care management 08/26/2025.
Severe hyponatremia-serum sodium 104
Diarrheal illness-nonbloody
Pancolitis
Cystitis
Severe diffuse hepatic steatosis
Severe hepatomegaly and splenomegaly
NICOLAS-serum creatinine 6.8
Metabolic acidosis
Hypomagnesemia
Hypocalcemia
Rhabdomyolysis
Hyperglycemia
Alcohol dependence
Elevated LFTs
Mild coagulopathy
Mild nghqmx-ergfcsaugo-udovltzwsf 10.2
Thrombocytopenia-platelet 96
Abnormal EKG-troponin pending
Conditions present prior to admission:
Morbid obesity-on [place]jaro.
EUNICE/CPAP intolerant.
Hypertension.
Hyperlipidemia.
Diabetes.
Daily EtOH.
GERD
TMJ
Anxiety
Umbilical hernia
Major depression
Plan
Patient will be admitted to medical intensive care unit with severe symptomatic hyponatremia
Supplemental oxygen as needed
Aspiration precautions
Nebulizers if needed-currently not bronchospastic
Aspiration precautions
Follow serum sodium level closely
Consider 3% saline-cautious administration
Goal correction 6 mEq/liter in the first 24 hours
Monitor neurologic status closely-rapid correction can rarely leads to osmotic demyelination syndrome
Nephrology evaluation ongoing
Diuretics and potential use of Samsca per nephrology
Check TSH
Check cortisol
Check urine osmolarity and sodium
Severe NICOLAS
Consider hemodialysis
Replace electrolytes including magnesium which is considerably low
Follow acidosis-bicarb initiated
Monitor diarrhea
GI evaluation of pancolitis and diarrhea
Stool studies pending
Follow LFTs
Follow hemoglobin and platelet
Transfuse if needed
Follow CPK
EKG abnormal-check troponin
MSAS protocol
Ativan as needed
Thiamine, folate and multivitamins
Phenobarbital if needed
Alcohol cessation counseling
DVT prophylaxis
Early nutrition
Early mobilization
Critical care statement: A total of 65 minutes of critical care time was provided for this patient today. This includes management of unstable vital signs, evaluation of the patient at bedside, reviewing the patient�s pertinent medical records
including radiographs, microbiology, laboratory evaluations, and��discussion with primary team, consultants, pharmacy, nutrition, physical therapy, case management, charge nurse, critical care nursing, and respiratory therapy.
Diagnostic data:
Chest x-ray 08/25/2025-moderate elevation right hemidiaphragm
CT abdomen and pelvis 08/25/2025-severe bilateral renal and perirenal edema, differential infectious pyelonephritis or inflammatory renal disease such as vasculitis, mild acute pancolitis, severe diffuse hepatic steatosis, severe hepatomegaly,
moderate splenomegaly, cystitis
Data Reviewed
-
EKG: Report reviewed by me
Radiology: Report reviewed by me
CT Scan: Report reviewed by me
Medical Tests (Nuc Med, Echo etc): Report reviewed by me
Labs: Labs reviewed by me
Old Records: Reviewed
Critical Care Time (in minutes): 65
[2025-08-26 08:04] LABS: Glucose - Point of Care 88 mg/dl (70-99)
[2025-08-26] MEDS: THIAMINE INJECTION 200 MG IV ×2 (08:07→19:37)
[2025-08-26] MEDS: NEURONTIN 100 MG PO (08:07)
[2025-08-26] MEDS: FOLVITE 1 MG PO (08:07)
[2025-08-26] MEDS: NOVOLOG FLEXPEN-LOW RESISTANCE SC ×2 (08:08→12:40)
--- NOTE | 2025-08-26 09:21 | PTCARENOTE ---
Assumed care of pt. ST 1deg AVB noted on monitor. increased activity noted, MSAS3-4. N/V noted after breakfast. 1+ anasarca. Audible Exp wheezing with activity. WON to bedside for Bilat heel wound eval-see note. Bicarb gtt infusing, mag complete.
[2025-08-26 09:36] LABS: Blood Urea Nitrogen 66 mg/dl (9-20); Calcium 8.0 mg/dl (8.4-10.2); Carbon Dioxide 8 mmol/L (22-30); Chloride 76 mmol/L (98-107); Estimated Creatinine Clearance 22 ml/min; Glucose 81 mg/dl (70-99); Potassium 4.3 mmol/L (3.5-5.1); Sodium 109 mmol/L (135-145); eGFR 10.26
--- NOTE | 2025-08-26 09:54 | WOUNDNOTE ---
[facility] RN note: Patient admitted with diarrhea, NICOLAS, severe hyponatremia.
See H&P for complete history.
PMH: Diabetes, neuropathy, ETOH, depression.
Wound Location and type/assessment: Patient admitted with dry, cracked and callused heels and dry skin on plantar aspect of bilateral feet. Patient does not currently see a Scrap Drop Engineer. Patient stands, ambulates and turns. Sacrum intact.
Appetite: Good
Pressure redistribution devices in place: Centrella Max Air, keep heels off-loaded when in bed.
Plan: Will recommend Hydrophor for heels and feet. Recommended following up with a Scrap Drop Engineer in the [place] area as patient has diabetes and neuropathy. Patient and state understanding. Will confirm orders with hospitalist and update nurse.
Updated care plan and will follow as needed.
Note to case management of equipment requested for discharge:
Recommend follow up at wound care center upon discharge.
[2025-08-26 10:25] LABS: Glycohemoglobin (HgbA1c) 6.5 % (4.0-5.9)
--- NOTE | 2025-08-26 10:36 | WOUNDNOTE ---
RIGHT FOOT, PLANTAR VIEW
--- NOTE | 2025-08-26 10:37 | WOUNDNOTE ---
LEFT FOOT PLANTAR ASPECT
[2025-08-26 11:07] LABS: B.E. -15.4 mmol/L; O2 Saturation % 97.7 % (94-98); PCO2 29 mmHg (35-48); PO2 87 mmHg (83-108); Potassium 4.2 mMOL/L (3.5-5.1)
[2025-08-26] MEDS: HEPARIN SC (11:10)
[2025-08-26 11:14] LABS: HCO3 11.3 mmol/L (21-28)
[2025-08-26 11:15] LABS: Sodium 108 mMOL/L (136-145)
--- NOTE | 2025-08-26 11:16 | W.PN.NEPH.PH ---
Addendum entered and electronically signed by Dar Dubois DO 08/26/25 16:37:
60 min cc time spent
Original Note:
Today's Communication / Plan
-
Continue bicarbonate drip with increased rate
Continue every 4 BMP avoid overcorrection of hyponatremia
Ordered ABG for now
Assessment/Plan
-
Assessment
Colitis
Large-volume diarrhea
Hyponatremia
Anion gap metabolic acidosis
Acute kidney injury
Rhabdomyolysis 11,000
Elevated liver function tests
Chronic alcohol use
Diabetes mellitus type 2
Hypertension
Hyperlipidemia
Plan
Follow BMP every 4 hours
Check lactate= normal
Check urine studies, straight cath if needed
PVR was only 72 cc
Stat ABG
Bicarbonate drip started around 6 AM for worsening bicarb and chemistry
pH on VBG yesterday 7.24
Appointment we record his output as I discussed with the patient otherwise will need to place Verdugo catheter
Urine positive for blood but only 3-6 red blood cell= consistent with rhabdo
Ordered serology
Increase bicarb
Careful not to overcorrect sodium.= Wellbutrin new for him in the last 3 weeks though this causes SIADH which is not consistent with urine studies
Spent a significant amount of time discussing with the patient and his about need for dialysis. At this point there is no acute need for dialysis. Reasons to start would be no improvement in acidosis or hyperkalemia or oligoanuria
Sodium bath only as low as 130 so would be concerned for overcorrection as discussed that this can be reversed with D5W if needed
Although later if we would need to place a dialysis catheter as discussed with critical care team

Critical care time spent 60minutes
-
-
Date of Service: August 26, 2025
CC / HPI / ROS
-
Chief Complaint:
Diarrhea
History of Present Illness:
Acute kidney injury and metabolic acidosis creatinine above 6 and bicarbonate bicarb 10 with normal lactate
Review of Systems:
Mild shortness of breath
Continue diarrhea
Labs
-
Labs:
WBC 4.8 10^3/uL (4.8-10.8) 08/26/25 04:17
RBC 3.13 10^6/uL (4.70-6.10) L 08/26/25 04:17
Hgb 10.2 g/dL (13.0-18.0) L 08/26/25 04:17
Hct 28.0 % (39.0-52.0) L 08/26/25 04:17
Plt Count 96 10^3/uL (130-400) L 08/26/25 04:17
eGFR 10.26 08/26/25 08:13
Phosphorus 6.9 mg/dl (2.5-4.5) H 08/26/25 04:17
Albumin 3.8 g/dl (3.5-5.0) 08/26/25 04:17
Physical Exam
-
Vital Signs:
Vital Signs
Temp Pulse Resp BP Pulse Ox
98.0 F 96 21 143/77 94
08/26/25 08:54 08/26/25 11:00 08/26/25 11:00 08/26/25 09:00 08/26/25 10:00
[2025-08-26] MEDS: HYDROPHOR 1 APPLIC TOPICAL (11:36)
[2025-08-26 12:22] LABS: Glucose - Point of Care 104 mg/dl (70-99)
--- NOTE | 2025-08-26 12:26 | PTCARENOTE ---
Pt up in chair. MSAS 3. at bedside. Assessment unchanged.
[2025-08-26 12:52] LABS: Blood Urea Nitrogen 68 mg/dl (9-20); Calcium 8.1 mg/dl (8.4-10.2); Carbon Dioxide 11 mmol/L (22-30); Chloride 75 mmol/L (98-107); Glucose 93 mg/dl (70-99); Magnesium 1.5 mg/dl (1.6-2.3); Potassium 4.2 mmol/L (3.5-5.1); Sodium 108 mmol/L (135-145)
--- NOTE | 2025-08-26 12:58 | W.PN.HOSP.TC ---
Today's Communication/Plan
-
IV Zosyn
Bicarb drip
Monitor BMP
Continue MSAS
Assessment / Plan
Assessment / Plan
40-year-old with history of aac-vflsmte-iagsbksfb diabetes hypertension, hyperlipidemia who presents to the Emergency Department with 2 weeks of diarrhea and found to have NICOLAS as well severe hyponatremia.
PLAN:
#Severe hyponatremia
#Hypovolemic hyponatremia due to diarrhea
sodium 104 on presentation
patient alert and oriented and with normal mental status
No history of seizures
on sertraline, on hold, suspect this is a mixture of hypovolemic hyponatremia with polydipsia
S/p replete crystalloids per nephrology 5 L total of NS
-Serum osmole 261 low
-urine osms to 13 low
- urine sodium 15 low
- TSH 3.5
- cortisol random 52
-Monitor serum sodium every 4 hours
- Nephrology consult appreciate recs
#Diarrhea
acute to subacute diarrhea and occasionally bloody
History of colonoscopy about 5 years ago which was negative for IBD
CT scan with pancolitis
- C. difficile negative,
-stool cultures pending,
- stool WBC pending,
- fecal calprotectin pending
-Stool O&P
-IV Zosyn 4.5g over 12 hours
- consult GI, appreciate recs
- Diet as tolerated for with free water restriction
#NICOLAS
#Rhabdomyolysis
#High anion gap metabolic acidosis with metabolic alkalosis
Anion gap 20 on presentation, 22 today
Delta gap 10, metabolic alkalosis likely due to contraction alkalosis due to diarrhea
In the setting of alcohol use rhabdomyolysis, acute renal failure
Lactic acid normal
CR on presentation 6.8 CR today 6.5
suspect ATN in the setting of severe diarrhea, diabetes and ARB use but clearly still volume down.
CPK of 11,000, rhabdo contributing to the NICOLAS, rhabdo in the setting of alcohol use
Magnesium 1.5
- Hold statin
- Check urine creatinine and sodium for FENa
- IV fluids as above per nephrology
- UA with blood, consistent with rhabdo
- inflammatory panel with RF, CARLITOS, Complement C3/4, ASO, pending
- Monitor CK levels
- Bicarb drip
#Transaminitis
#Alcohol use disorder
Pint of vodka per day
last drink [address] with hepatic steatosis and hepatomegaly
AST elevated 4x ALT
Alk phos normal
T. bili L bilirubin 2.6
Likely due to alcohol use disorder and fatty liver
Continue to monitor
- MSAS protocol
#DM II
- hold metformin
- sliding scale insulin
DVT prophylaxis: Heparin subcu
CODE STATUS: Full code
Anticipated Discharge: > 48 hours
Subjective/Interval History
-
Saw patient at bedside with present. Patient reported 3 bowel movements in the a.m. with 1 bloody bowel movement bright red blood, also had vomiting of breakfast. Reported was due to eating too fast not that he was having nausea. Patient had
an episode of epistaxis after vomiting. Patient also [place] got in his mouth. Patient also reported that he was not having seizures or was laying down for extended periods of time but did report thigh
and calf pain over the past week. Patient reported that he has had a history of bright red blood per rectum 5 years ago which led to colonoscopy which was also in the setting of heavy alcohol use. No prior history of EGD. Discussed plan with
patient, and answered questions as best as possible. Date of Service: August 26, 2025
Objective Data
-
Labs:
Laboratory Results
08/26/25 08/26/25 08/26/25
00:19 04:00 04:17
WBC 4.8
Hgb 10.2 L
Hct 28.0 L
Plt Count 96 L
PT 17.8 H
INR 1.42
APTT 39.5 H
HCO3
Sodium 105 L* Cancelled 108 L*
Potassium 4.0 Cancelled 4.0
Chloride 71 L Cancelled 77 L
Carbon Dioxide 11 L* Cancelled 10 L*
BUN 64 H Cancelled 63 H
Creatinine 6.5 H* Cancelled 6.6 H*
Glucose 76 Cancelled 74
Calcium 7.3 L Cancelled 7.3 L
08/26/25 08/26/25 08/26/25
08:13 11:02 11:57
WBC
Hgb
Hct
Plt Count
PT
INR
APTT
HCO3 11.3 L*
Sodium 109 L* 108 L*
Potassium 4.3 4.2
Chloride 76 L 75 L
Carbon Dioxide 8 L* 11 L*
BUN 66 H 68 H
Creatinine 6.5 H* Pending
Glucose 81 93
Calcium 8.0 L 8.1 L
Vital Signs:
Vital Signs
Temp Pulse Resp BP Pulse Ox
97.9 F 98 23 142/72 95
08/26/25 12:14 08/26/25 12:00 08/26/25 12:00 08/26/25 12:00 08/26/25 12:00
I&O
08/25/25 08/26/25 08/27/25
06:59 06:59 06:59
Intake Total 3130 / 3130 675 / 675
Output Total 200 / 200 325 / 325
Balance 2930 / 2930 350 / 350
Review of Systems
-
History Source: Patient
Constitutional: Denies Fever or Chills
EENT: Reports Bloody Nose; Denies Sore Throat or Runny Nose
Respiratory: Denies Cough, Trouble Breathing or Wheezing
Cardiac: Denies Chest Pain or Palpitations
Abdomen/GI: Reports Vomiting, Diarrhea and Bloody Stools; Denies Abdominal Pain, Nausea or Constipated
Genitourinary: Denies Dysuria
Skin: Denies Itching or Rash
Neuro: Denies Dizzy or Headache
Physical Exam
-
General: Well Developed, Well Nourished, No Apparent Distress, Comfortable and Morbidly Obese; Negative Fever
HEENT: Normocephalic and Atraumatic
Respiratory: Wheezes (Throughout all lung nayak) and Non Labored Respirations; Negative Crackles or Accessory Resp Muscle Use
Cardiac: Regular Rhythm and S1/S2; Negative Murmur
GI: Soft, Nontender, Nondistended and Normal Bowel Sounds
Musculoskeletal: No Clubbing and No Edema
Skin: Warm and Dry
Neuro: Awake and Alert
[2025-08-26 12:59] LABS: Estimated Creatinine Clearance 23 ml/min; eGFR 10.86
--- NOTE | 2025-08-26 12:59 | CM ---
Addendum entered by My Rodriguez 08/26/25 13:10:
PCP is Dr. Homer Aquino. Pharmacy is [facility].
Original Note:
Initial assessment completed with patient with in room. Patient lives with his and 3 y/o son in a 2 story plus basement home w B/B on 2nd and 1/2 bath on , 2 steps to enter. 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 He is currently looking for work. No DME in use. He has a CPAP but does not use it. Recently had an updated sleep study. No in-home services. Patient has a history of
ETOH abuse. He was in a rehab, [facility] in [place], in 2020. He is interested in outpatient services. Will contact [facility]. NO HC-POA. No VA benefits. No Psychiatric hospitalizations. Discharge POC: Anticipate home with no additional skilled
needs. [facility] notified.
[2025-08-26] MEDS: ZOSYN 50 IV ×2 (14:02→19:37)
[2025-08-26 15:15] LABS: Troponin I 0.057 ng/ml
[2025-08-26 16:15] LABS: ALT (SGPT) 72 U/L (0-50); AST (SGOT) 339 U/L (17-59); Albumin 4.0 g/dl (3.5-5.0); Alkaline Phosphatase 61 U/L (38-126); Blood Urea Nitrogen 70 mg/dl (9-20); Calcium 7.6 mg/dl (8.4-10.2); Carbon Dioxide 14 mmol/L (22-30); Chloride 75 mmol/L (98-107); Estimated Creatinine Clearance 23 ml/min; Glucose 125 mg/dl (70-99); Potassium 4.1 mmol/L (3.5-5.1); Sodium 110 mmol/L (135-145); Total Protein 6.7 g/dl (6.3-8.2); eGFR 10.45
--- NOTE | 2025-08-26 16:33 | PTCARENOTE ---
Assessment unchanged. MSAS 3.
[2025-08-26 16:34] LABS: Uric Acid 9.8 mg/dl (3.5-8.5)
--- NOTE | 2025-08-26 16:37 | W.PN.UPDATE ---
Update Note
Progress Note Update
spoke with later in day with update. labs reviewed . cont bicarb gtt. no acute indication for HD today. cont current plan. corresponded with ICU nurse

24 min cc time additional
[2025-08-26 17:27] LABS: Glucose - Point of Care 169 mg/dl (70-99)
[2025-08-26] MEDS: NOVOLOG FLEXPEN-LOW RESISTANCE 1 UNITS SC (17:32)
--- NOTE | 2025-08-26 20:00 | PTCARENOTE ---
Received pt. at 1900. Pt. currently up in chair. Awake, alert, and oriented. Currently denies pain/discomfort. Afebrile. Heart rhythm sinus tachy. Currently on room air. Lungs sound diminished. PO diet is ordered, good appetite. Abdomen is obese.
Voiding in urinal without issue. Skin as documented. Discussed plan of care with patient. Vital signs stable at this time.
[2025-08-26 20:29] LABS: Blood Urea Nitrogen 72 mg/dl (9-20); Calcium 8.0 mg/dl (8.4-10.2); Carbon Dioxide 16 mmol/L (22-30); Chloride 74 mmol/L (98-107); Glucose 143 mg/dl (70-99); Magnesium 2.0 mg/dl (1.6-2.3); Potassium 3.8 mmol/L (3.5-5.1); Sodium 108 mmol/L (135-145)
[2025-08-26 20:31] LABS: Troponin I 0.060 ng/ml
[2025-08-26 20:32] LABS: Estimated Creatinine Clearance 23 ml/min; eGFR 10.65
[2025-08-26 21:40] LABS: Glucose - Point of Care 141 mg/dl (70-99)
[2025-08-26] MEDS: ATIVAN 1 MG IV (23:48)
[2025-08-27] VITALS (17 sets, daily range): BP systolic 120–171; BP diastolic 52–97; BMI 40.8
--- NOTE | 2025-08-27 | PTCARENOTE ---
Pt. becoming more forgetful and uncooperative. Pt. chair alarm going off. Went to assess alarm and patient. Found patient in bathroom sitting on toilet with IV disconnected and bleeding at site. Immediately assisted patient to his bed. I explained
to patient it is not safe for him to ambulate in room without assistance. Bed alarm placed on. IV site redressed. MSAS score increasing. PRN Ativan given, see MAR. Vital signs stable at this time.
[2025-08-27 00:26] LABS: Blood Urea Nitrogen 77 mg/dl (9-20); Calcium 7.6 mg/dl (8.4-10.2); Carbon Dioxide 17 mmol/L (22-30); Chloride 76 mmol/L (98-107); Estimated Creatinine Clearance 22 ml/min; Glucose 96 mg/dl (70-99); Potassium 3.8 mmol/L (3.5-5.1); Sodium 112 mmol/L (135-145); eGFR 10.26
[2025-08-27] MEDS: ZOSYN 50 IV ×4 (01:46→19:35)
[2025-08-27] MEDS: ATIVAN 1 MG PO (02:12)
[2025-08-27] MEDS: APRESOLINE 10 MG IV (04:23)
[2025-08-27 04:30] LABS: Hematocrit 26.2 % (39.0-52.0); Hemoglobin 9.5 g/dL (13.0-18.0); Mean Corp Hgb Conc. 36.3 g/dL (33.0-37.0); Mean Corpuscular Volume 89.1 fL (80.0-94.0); Platelet Count 103 10^3/uL (130-400); Red Cell Dist. Width 12.1 % (11.5-14.5)
--- NOTE | 2025-08-27 04:30 | PTCARENOTE ---
Pt. bed alarm going off. Immediately went into room to assess situation. Pt. confused and trying to stand up on his own. I tried to redirect patient to get back into bed. His gait was unsteady. He would not cooperate. 2 more nurses came to bedside
in attempt to redirect patient. Pt. continuing attempts to stand up stating he wanted to use the bathroom. Finally able to redirect pt. to use urinal while sitting down. Pt. then uncooperative and apprehensive about taking his shorts off to use the
urinal. After multiple failed attempts to use urinal, pt. willing to take off shorts but not his underwear. Pt. voided. Laid pt. back in bed. Reset bed alarm. PRN Ativan given based on MSAS score, see MAR. Pt. remains confused and thrashing around
bed. Precedex gtt started. Noted to be Hypertensive. PRN hydralazine given. AM labs are drawn. Vital signs stable at this time.
[2025-08-27 04:48] LABS: INR 1.36; PT 17.0 Sec (11.4-14.6)
[2025-08-27] MEDS: ATIVAN 1 MG IV ×3 (05:03→22:07)
[2025-08-27 05:17] LABS: Troponin I 0.050 ng/ml
[2025-08-27 05:18] LABS: ALT (SGPT) 74 U/L (0-50); AST (SGOT) 296 U/L (17-59); Albumin 3.8 g/dl (3.5-5.0); Alkaline Phosphatase 60 U/L (38-126); Blood Urea Nitrogen 76 mg/dl (9-20); Calcium 7.6 mg/dl (8.4-10.2); Carbon Dioxide 20 mmol/L (22-30); Chloride 76 mmol/L (98-107); Estimated Creatinine Clearance 22 ml/min; Glucose 97 mg/dl (70-99); Potassium 3.5 mmol/L (3.5-5.1); Sodium 114 mmol/L (135-145); Total Protein 6.4 g/dl (6.3-8.2); eGFR 10.07
[2025-08-27] MEDS: PRECEDEX 100 IV ×2 (05:20→23:15)
--- NOTE | 2025-08-27 07:44 | W.PN.INTV ---
Today's Communication / Plan
Recommendations
Alcohol withdrawal protocol
Supplemental oxygen
CPAP or BiPAP as needed
Precedex
Ativan
Phenobarbital
Correcting electrolytes
Nephrology following-hemodialysis on hold
Assessment
-
40-year-old non-smoking morbidly obese daily alcohol and taking male with a history of hypertension, hyperlipidemia, and diabetes presented with 2 weeks of persistent diarrhea that was nonbloody and found to have severe acute kidney injury, severe
hyponatremia-service architect consulted for critical care management 08/26/2025.
Severe hyponatremia-serum sodium 104
Diarrheal illness-nonbloody
Pancolitis
Cystitis
Severe diffuse hepatic steatosis
Severe hepatomegaly and splenomegaly
NICOLAS-serum creatinine 6.8
Metabolic acidosis
Hypomagnesemia
Hypocalcemia
Rhabdomyolysis
Hyperglycemia
Alcohol dependence
Elevated LFTs
Mild coagulopathy
Mild xpmdvr-xguoyzjrkz-lcjvabogqq 10.2
Thrombocytopenia-platelet 96
Abnormal EKG-troponin pending
Conditions present prior to admission:
Morbid obesity-on Monjaro.
EUNICE/CPAP intolerant.
Hypertension.
Hyperlipidemia.
Diabetes.
Daily EtOH.
GERD
TMJ
Anxiety
Umbilical hernia
Major depression
Plan
Remains critically ill now going through alcohol withdrawal
Supplemental oxygen as needed
CPAP if tolerated-patient states he has tried it in the past and did not tolerate in the outpatient setting
Aspiration precautions
Nebulizers if needed-currently not bronchospastic
Aspiration precautions
Follow serum sodium level closely-improved and now 114
Consider 3% saline-cautious administration
Goal correction 6 mEq/liter in the first 24 hours
Monitor neurologic status closely-rapid correction can rarely leads to osmotic demyelination syndrome
Nephrology evaluation ongoing-correspondence reviewed
Diuretics and potential use of Samsca per nephrology
Consider TSH
Consider cortisol
Check urine osmolarity and sodium
Severe NICOLAS
Consider hemodialysis-on hold for now
Replace electrolytes including magnesium which is considerably low-potassium and magnesium now improved
Follow acidosis-bicarb initiated
Monitor diarrhea
GI evaluation of pancolitis and diarrhea
Stool studies 08/25/2025-C. difficile antigen positive but toxin negative, negative Cryptosporidium, stool cultures including Salmonella, Campylobacter, E. coli Shiga like pending, no WBCs
Follow LFTs
On Zosyn
Follow hemoglobin and platelet
Transfuse if needed
Follow CPK
Abnormal EKG
Troponin trended
MSAS protocol
Ativan as needed-received several doses in the last 24 hours
Thiamine, folate and multivitamins
Phenobarbital initiated
Now on Precedex
Alcohol cessation counseling
DVT prophylaxis-on heparin subcu
Early nutrition
Early mobilization
Critical care statement: A total of 45 minutes of critical care time was provided for this patient today. This includes management of unstable vital signs, evaluation of the patient at bedside, reviewing the patient�s pertinent medical records
including radiographs, microbiology, laboratory evaluations, and��discussion with primary team, consultants, pharmacy, nutrition, physical therapy, case management, charge nurse, critical care nursing, and respiratory therapy.
Diagnostic data:
Chest x-ray 08/25/2025-moderate elevation right hemidiaphragm
CT abdomen and pelvis 08/25/2025-severe bilateral renal and perirenal edema, differential infectious pyelonephritis or inflammatory renal disease such as vasculitis, mild acute pancolitis, severe diffuse hepatic steatosis, severe hepatomegaly,
moderate splenomegaly, cystitis
Subjective Dataa
Subjective Data
Date of Service:
Date of Service: August 27, 2025
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
Subjective:
Increase signs and symptoms of alcohol withdrawal, now on Precedex, patient sedated, snoring, some apneas, maintaining saturations, review systems unobtainable
Review of Systems
General: Unobtainable - Pat Unresp
Objective Data
Data Reviewed
Vital Signs / I&O / Oxygen:
Vital Signs
Temp Pulse Resp BP Pulse Ox
98.0 F 94 18 147/89 97
08/26/25 23:07 08/27/25 06:02 08/27/25 06:02 08/27/25 06:02 08/27/25 06:02
Intake and Output
08/26/25 08/27/25 08/28/25
06:59 06:59 06:59
Intake Total 3130 / 3130 2907.2 / 2907.2
Output Total 200 / 200 1850 / 1850
Balance 2930 / 2930 1057.2 / 1057.2
SaO2 97
Physical Exam
General: Respiratory Distress, Comfortable and Other
HEENT: Normocephalic, Anicteric and Other (Thick neck, snoring when sleeping with partial apneas)
Cardiovascular: Regular Rhythm and Murmur (n)
Respiratory: Wheeze (n), Crackles (Few basilar), Rhonchi, Non-Labored Respirations, Accessory Resp Muscle Use (n) and Stridor (n)
GI: Soft, Distended and Non Tender
Neurology: Lethargic (Sedated on Precedex)
Skin: Warm, Good Color, Cyanosis (n), Jaundice (n) and Rash (n)
Labs/Micro/Reports
Lab Data
08/27/25 04:13
Laboratory Results
08/26/25 08/27/25
11:02 04:13
PT 17.0 H
INR 1.36
pH 7.20 L
pCO2 29 L
pO2 87
HCO3 11.3 L*
O2 Delivery Level
Microbiology
08/25/25 22:29 Feces/Stool Stool Leukocytes - Final
08/25/25 22:29 Feces/Stool Cryptosporidium/Giardia - Final
Negative for Cryptosporidium and/or Giardia Lamblia
antigens.
08/25/25 22:29 Feces/Stool C. difficile GDH Antigen & Toxins - Final
C. difficile antigen positive, toxin negative.
Clostridium difficile present, but toxin not detected.
Patient may be a carrier, colonized with nontoxinogenic
strain or the level of toxin in sample is below detection
limits. This information should be used in conjunction with
the patient's clinical history.
[2025-08-27] MEDS: THIAMINE INJECTION 200 MG IV ×2 (08:49→19:35)
--- NOTE | 2025-08-27 09:00 | PTCARENOTE ---
0700 assumed care. pt in bed. On Precedex 0.2mcg and Bicarb at 125
[2025-08-27] MEDS: NOVOLOG FLEXPEN-LOW RESISTANCE SC ×3 (09:48→16:45)
[2025-08-27 09:56] LABS: Glucose - Point of Care 114 mg/dl (70-99)
[2025-08-27] MEDS: NSS (PRESERVATIVE FREE) 10 ML IV (10:51)
[2025-08-27] MEDS: FOLVITE 1 MG PO (10:52)
--- NOTE | 2025-08-27 10:54 | W.PN.HOSP.TC ---
Today's Communication/Plan
-
Continue antibiotics
Requiring Precedex
Ativan
Phenobarb taper
Recheck CK
Assessment / Plan
Assessment / Plan
40-year-old with history of rnc-uvoqtxu-swxjhkptq diabetes hypertension, hyperlipidemia, hyperlipidemia, obstructive sleep apnea not using CPAP, alcohol use disorder who presents to the Emergency Department with 2 weeks of diarrhea and found to have
NICOLAS as well severe hyponatremia in the ED. Patient also reported bright red blood per rectum in the past week prior to presentation. CT abdomen in the ED was notable for bilateral renal and perirenal edema as well as mild acute pancolitis. Labs
were notable for sodium of 104 HCO3 14 BUN 65 creatinine 6.8 CK 11,000 and high anion gap metabolic acidosis. Nephrology was consulted and started patient on aggressive fluid resuscitation the patient was admitted to the ICU where blood gas was
notable for severe acidosis and patient received bicarb drip, MSAS protocol, continued IV fluids, and IV antibiotics. GI was consulted for diarrhea and ordered stool studies which have so far been negative. During ICU stay patient became agitated
requiring Precedex and phenobarbital taper.
PLAN:
#Severe hyponatremia
#Hypovolemic hyponatremia due to diarrhea
sodium 104 on presentation
patient alert and oriented and with normal mental status
No history of seizures
on sertraline, on hold, suspect this is a mixture of hypovolemic hyponatremia with polydipsia
S/p replete crystalloids per nephrology 5 L total of NS
-Serum osmole 261 low
-urine osms to 13 low
- urine sodium 15 low
- TSH 3.5
- cortisol random 52
-Monitor serum sodium every 4 hours, improving sodium levels in the 110s
- Nephrology consult appreciate recs
#Diarrhea, improving
acute to subacute diarrhea and occasionally bloody
History of colonoscopy about 5 years ago which was negative for IBD
CT scan with pancolitis
- C. difficile negative,
-stool cultures pending,
- stool WBC negative
- fecal calprotectin pending
-Stool O&P
-IV Zosyn 4.5g over 12 hours
- consult GI, appreciate recs
- Diet as tolerated for with free water restriction
#NICOLAS
#Rhabdomyolysis
#High anion gap metabolic acidosis with metabolic alkalosis
Anion gap 20 on presentation, 18 today
Delta gap 6, metabolic alkalosis likely due to contraction alkalosis due to diarrhea
In the setting of alcohol use rhabdomyolysis, acute renal failure
Lactic acid normal
CR on presentation 6.8 CR today 6.6
suspect ATN in the setting of severe diarrhea, diabetes and ARB use but clearly still volume down.
CPK of 11,000, rhabdo contributing to the NICOLAS, rhabdo in the setting of alcohol use
Magnesium 1.5
- Verdugo
- Hold statin
- urine creatinine 89 urine sodium 15, FENa 1% indeterminate
- IV fluids as above per nephrology
- UA with blood, consistent with rhabdo
- inflammatory panel with RF, CARLITOS, Complement C3/4, ASO, pending
- Monitor CK levels
- Bicarb drip
#Transaminitis
#Alcohol use disorder
Pint of vodka per day
last drink [address] with hepatic steatosis and hepatomegaly
AST elevated 4x ALT
Alk phos normal
T. bili L bilirubin 2.6
Likely due to alcohol use disorder and fatty liver
Continue to monitor
- MSAS protocol
- Patient requiring Precedex, now on phenobarb taper
#DM II
- hold metformin
- sliding scale insulin
DVT prophylaxis: Heparin subcu
CODE STATUS: Full code
Anticipated Discharge: > 48 hours
Subjective/Interval History
-
Patient was seen at bedside, patient was somnolent on Precedex. He was arousable and alert able to answer questions. Reported no increased diarrhea, no blood in the stools. Date of Service: August 27, 2025
Objective Data
-
Labs:
Laboratory Results
08/26/25 08/27/25 08/27/25
23:51 04:13 10:01
WBC 3.6 L
Hgb 9.5 L
Hct 26.2 L
Plt Count 103 L
PT 17.0 H
INR 1.36
Sodium 112 L* 114 L* Cancelled
Potassium 3.8 3.5 Cancelled
Chloride 76 L 76 L Cancelled
Carbon Dioxide 17 L 20 L Cancelled
BUN 77 H 76 H Cancelled
Creatinine 6.5 H* 6.6 H* Cancelled
Glucose 96 97 Cancelled
Calcium 7.6 L 7.6 L Cancelled
Total Bilirubin 1.6 H
AST 296 H
ALT 74 H
Alkaline Phosphatase 60
08/27/25 08/27/25
10:45 12:00
WBC
Hgb
Hct
Plt Count
PT
INR
Sodium Pending Pending
Potassium Pending Pending
Chloride Pending Pending
Carbon Dioxide Pending Pending
BUN Pending Pending
Creatinine Pending Pending
Glucose Pending Pending
Calcium Pending Pending
Total Bilirubin
AST
ALT
Alkaline Phosphatase
Vital Signs:
Vital Signs
Temp Pulse Resp BP Pulse Ox
98.0 F 94 18 147/89 97
08/26/25 23:07 08/27/25 06:02 08/27/25 06:02 08/27/25 06:02 08/27/25 06:02
I&O
08/26/25 08/27/25 08/28/25
06:59 06:59 06:59
Intake Total 3130 / 3130 2907.2 / 3039.7 396.9 / 396.9
Output Total 200 / 200 1850 / 1850 300 / 300
Balance 2930 / 2930 1057.2 / 1189.7 96.9 / 96.9
Review of Systems
-
Unable to obtain full review of systems at this time due to: Acuity
History Source: Patient
Constitutional: Denies Fever
EENT: Reports No Symptoms Reported
Respiratory: Denies Cough or Trouble Breathing
Cardiac: Denies Chest Pain or Palpitations
Abdomen/GI: Denies Abdominal Pain, Nausea, Vomiting, Diarrhea, Bloody Stools or Black Stools
Neuro: Denies Headache
Physical Exam
-
General: Well Developed, Well Nourished, No Apparent Distress and Morbidly Obese; Negative Fever
HEENT: Normocephalic and Atraumatic
Respiratory: Wheezes and Non Labored Respirations; Negative Crackles
Cardiac: Regular Rhythm and S1/S2; Negative Murmur
GI: Soft, Nontender, Normal Bowel Sounds and Distended
Skin: Warm and Dry
Neuro: Sedated (On Precedex)
[2025-08-27 11:56] LABS: Blood Urea Nitrogen 80 mg/dl (9-20); Calcium 7.4 mg/dl (8.4-10.2); Carbon Dioxide 20 mmol/L (22-30); Chloride 75 mmol/L (98-107); Estimated Creatinine Clearance 22 ml/min; Glucose 94 mg/dl (70-99); Potassium 3.7 mmol/L (3.5-5.1); Sodium 113 mmol/L (135-145); eGFR 9.72
--- NOTE | 2025-08-27 11:58 | W.PN.NEPH.PH ---
Today's Communication / Plan
-
Verdugo catheter
Discontinue bicarb drip
Start 3% saline
Continue every 4 BMP
Assessment/Plan
-
Assessment
Colitis
Large-volume diarrhea
Hyponatremia
Anion gap metabolic acidosis
Acute kidney injury
Rhabdomyolysis 11,000
Elevated liver function tests
Chronic alcohol use
Diabetes mellitus type 2
Hypertension
Hyperlipidemia
Plan
Follow BMP every 4 hours
Check lactate= normal
PVR was only 72 cc
Ordered serology= pending
Careful not to overcorrect sodium.= Wellbutrin new for him in the last 3 weeks though this causes SIADH which is not consistent with urine studies though significant alcohol use more consistent
At this time no acute need for dialysis from a electrolyte or volume standpoint
Patient going into alcohol withdrawal on prophylactic
Ordered Verdugo catheter to be placed, better monitor critically ill patient
Sodium stagnant now at 113 I will start him on 3% saline discontinue bicarbonate drip
And discussed with critical care nurse
Continue every 4 BMP

Critical care time spent 60minutes
-
-
Date of Service: August 27, 2025
CC / HPI / ROS
-
Chief Complaint:
Diarrhea
History of Present Illness:
Acute kidney injury and metabolic acidosis creatinine above 6 and bicarbonate bicarb 10 with normal lactate
Review of Systems:
Withdrawal
Diarrhea resolved
Nonoliguric
Labs
-
Labs:
WBC 3.6 10^3/uL (4.8-10.8) L 08/27/25 04:13
RBC 2.94 10^6/uL (4.70-6.10) L 08/27/25 04:13
Hgb 9.5 g/dL (13.0-18.0) L 08/27/25 04:13
Hct 26.2 % (39.0-52.0) L 08/27/25 04:13
Plt Count 103 10^3/uL (130-400) L 08/27/25 04:13
eGFR 9.72 08/27/25 11:17
Phosphorus 6.9 mg/dl (2.5-4.5) H 08/26/25 04:17
Albumin 3.8 g/dl (3.5-5.0) 08/27/25 04:13
Physical Exam
-
Vital Signs:
Vital Signs
Temp Pulse Resp BP Pulse Ox
97.4 F 94 18 147/89 97
08/27/25 11:07 08/27/25 06:02 08/27/25 06:02 08/27/25 06:02 08/27/25 06:02
[2025-08-27 12:07] LABS: Glucose - Point of Care 103 mg/dl (70-99)
[2025-08-27] MEDS: SODIUM CHLORIDE 3% 250 IV ×2 (12:54→20:51)
[2025-08-27] MEDS: PHENOBARBITAL 104 MG IV (13:46)
[2025-08-27] MEDS: HYDROPHOR 1 APPLIC TOPICAL (15:06)
[2025-08-27 16:12] LABS: Blood Urea Nitrogen 82 mg/dl (9-20); Calcium 7.6 mg/dl (8.4-10.2); Carbon Dioxide 20 mmol/L (22-30); Chloride 76 mmol/L (98-107); Estimated Creatinine Clearance 22 ml/min; Glucose 111 mg/dl (70-99); Potassium 3.6 mmol/L (3.5-5.1); Sodium 114 mmol/L (135-145); eGFR 9.89
[2025-08-27] MEDS: PHENOBARBITAL 97.5 MG IV ×2 (16:18→21:03)
[2025-08-27] MEDS: SODIUM BICARBONATE IV (16:19)
[2025-08-27] MEDS: IMODIUM 2 MG PO (16:19)
[2025-08-27 16:57] LABS: Glucose - Point of Care 121 mg/dl (70-99)
--- NOTE | 2025-08-27 17:16 | PTCARENOTE ---
15:00 BMP resulted: Sodium 114 from 113; Cr 6.7 from 6.8; pt on 3%Normal Saline 30/hr Next BMP 19:00 ; Inwelling Verdugo (since insertion) : 800 urinal output; Dr Buchanan made aware. order received to continue 3% Saline with same rate.
[2025-08-27] MEDS: ATIVAN 2 MG IV (19:35)
[2025-08-27 19:49] LABS: Estimated Creatinine Clearance 23 ml/min; eGFR 10.45
[2025-08-27 19:51] LABS: Blood Urea Nitrogen 86 mg/dl (9-20); Calcium 7.9 mg/dl (8.4-10.2); Carbon Dioxide 19 mmol/L (22-30); Chloride 77 mmol/L (98-107); Glucose 156 mg/dl (70-99); Potassium 3.8 mmol/L (3.5-5.1); Sodium 113 mmol/L (135-145)
--- NOTE | 2025-08-27 20:00 | PTCARENOTE ---
Received pt. at 1900. Pt. impulsive, attempting to jump out of bed. Redirected back into bed. PRN Ativan given per MSAS score, see MAR. Pt. denies pain/discomfort. Afebrile. Heart rhythm sinus. Blood pressure normotensive. Currently on nasal
cannula. Lungs sound diminished. PO diet, poor appetite. Verdugo catheter in place, draining without issue. Skin as documented. Discussed plan of care with patient. Vital signs stable at this time.
[2025-08-27 21:32] LABS: Glucose - Point of Care 158 mg/dl (70-99)
[2025-08-28] VITALS (21 sets, daily range): BP systolic 99–122; BP diastolic 51–91; BMI 44.5
--- NOTE | 2025-08-28 | PTCARENOTE ---
Pt. continues to be impulsive and confused. Multiple attempts by patient to get out of bed. Responded to bed alarm promptly each time. Pt. educated on why it is unsafe for him to get out of bed at this time. He is confused and gait is unsteady.
Precedex gtt has been restarted. PRN Ativan per MSAS. Vital signs stable at this time.
[2025-08-28 00:05] LABS: Blood Urea Nitrogen 92 mg/dl (9-20); Calcium 7.7 mg/dl (8.4-10.2); Carbon Dioxide 19 mmol/L (22-30); Chloride 81 mmol/L (98-107); Estimated Creatinine Clearance 23 ml/min; Glucose 150 mg/dl (70-99); Potassium 3.7 mmol/L (3.5-5.1); Sodium 120 mmol/L (135-145); eGFR 10.45
[2025-08-28] MEDS: ZOSYN 50 IV ×4 (01:02→19:58)
[2025-08-28 02:34] LABS: ANA, IgG Reflex to HEp-2 None Detected (None Detected)
[2025-08-28] MEDS: PRECEDEX 100 IV ×3 (03:17→11:16)
--- NOTE | 2025-08-28 03:50 | PTCARENOTE ---
Pt. assessment remains unchanged. AM labs drawn. Vital signs stable at this time.
[2025-08-28 03:58] LABS: Hematocrit 27.8 % (39.0-52.0); Hemoglobin 9.7 g/dL (13.0-18.0); Mean Corp Hgb Conc. 34.9 g/dL (33.0-37.0); Mean Corpuscular Volume 94.6 fL (80.0-94.0); Platelet Count 102 10^3/uL (130-400); Red Cell Dist. Width 12.4 % (11.5-14.5)
[2025-08-28 04:15] LABS: Blood Urea Nitrogen 92 mg/dl (9-20); Calcium 7.8 mg/dl (8.4-10.2); Carbon Dioxide 20 mmol/L (22-30); Chloride 82 mmol/L (98-107); Estimated Creatinine Clearance 23 ml/min; Glucose 144 mg/dl (70-99); Potassium 4.2 mmol/L (3.5-5.1); Sodium 118 mmol/L (135-145); eGFR 10.07
[2025-08-28] MEDS: SODIUM CHLORIDE 3% 250 IV (04:33)
--- NOTE | 2025-08-28 07:27 | W.PN.INTV ---
Today's Communication / Plan
Recommendations
Supplemental oxygen as needed
CPAP 10 cm if needed-reviewed diagnosis of probable moderate to severe sleep apnea with nursing
Antibiotics
Precedex, phenobarbital, Ativan as needed
Hyponatremia correction and NICOLAS management per nephrology
Assessment
-
40-year-old non-smoking morbidly obese daily alcohol and taking male with a history of hypertension, hyperlipidemia, and diabetes presented with 2 weeks of persistent diarrhea that was nonbloody and found to have severe acute kidney injury, severe
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
Severe hyponatremia-serum sodium 104
Diarrheal illness-nonbloody
Pancolitis
Cystitis
Severe diffuse hepatic steatosis
Severe hepatomegaly and splenomegaly
NICOLAS-serum creatinine 6.8
Metabolic acidosis
Hypomagnesemia
Hypocalcemia
Rhabdomyolysis
Hyperglycemia
Alcohol dependence
Elevated LFTs
Mild coagulopathy
Mild cizabk-zdzutswdsn-eqfoxppvpe 10.2
Thrombocytopenia-platelet 96
Abnormal EKG-troponin pending
Conditions present prior to admission:
Morbid obesity-on Monjaro.
EUNICE/CPAP intolerant.
Hypertension.
Hyperlipidemia.
Diabetes.
Daily EtOH.
GERD
TMJ
Anxiety
Umbilical hernia
Major depression
Plan
Remains critically ill now going through alcohol withdrawal-on Precedex drip
Supplemental oxygen as needed-currently on 4 L - 97% saturation
CPAP-minimum 10 cm if tolerated-patient states he has tried it in the past and did not tolerate in the outpatient setting
Aspiration precautions
Nebulizers if needed-currently not bronchospastic
Aspiration precautions
Follow serum sodium level closely-improved and now 118
Consider 3% saline-cautious administration
Goal correction 6 mEq/liter in the first 24 hours
Monitor neurologic status closely-rapid correction can rarely leads to osmotic demyelination syndrome-very slow correction thus far
Nephrology evaluation ongoing-correspondence reviewed
Diuretics and potential use of Samsca per nephrology
Consider TSH
Consider cortisol
Check urine osmolarity and sodium
Severe NICOLAS-serum creatinine still significantly elevated at 6.6
Consider hemodialysis-on hold for now
Replace electrolytes including magnesium which is considerably low-potassium and magnesium now improved
Follow acidosis-bicarb initiated
Follow [id number] 11,200
Monitor diarrhea
GI evaluation of pancolitis and diarrhea
Stool studies 08/25/2025-C. difficile antigen positive but toxin negative, negative Cryptosporidium, stool cultures including Salmonella, Campylobacter, E. coli Shiga like pending, no WBCs
Follow LFTs
On Zosyn
Follow hemoglobin and platelet
Transfuse if needed
Abnormal EKG
Troponin trended
MSAS protocol
Ativan as needed-received several doses in the last 24 hours
Thiamine, folate and multivitamins
Phenobarbital initiated
Precedex drip as needed
Alcohol cessation counseling
DVT prophylaxis-on heparin subcu
Eventual early nutrition
Early mobilization
Critical care statement: A total of 45 minutes of critical care time was provided for this patient today. This includes management of unstable vital signs, evaluation of the patient at bedside, reviewing the patient�s pertinent medical records
including radiographs, microbiology, laboratory evaluations, and��discussion with primary team, consultants, pharmacy, nutrition, physical therapy, case management, charge nurse, critical care nursing, and respiratory therapy.
Diagnostic data:
Chest x-ray 08/25/2025-moderate elevation right hemidiaphragm
CT abdomen and pelvis 08/25/2025-severe bilateral renal and perirenal edema, differential infectious pyelonephritis or inflammatory renal disease such as vasculitis, mild acute pancolitis, severe diffuse hepatic steatosis, severe hepatomegaly,
moderate splenomegaly, cystitis
Subjective Dataa
Subjective Data
Date of Service:
Date of Service: August 28, 2025
Chief Complaint: Liquefaction And Regasification Helper Follow Up and Pulmonary Follow Up
Subjective:
Sedated on Precedex, opens eyes, follows commands, no complaints of shortness of breath, chest pain or abdominal pain
Review of Systems
General: Other (Per HPI)
Objective Data
Data Reviewed
Vital Signs / I&O / Oxygen:
Vital Signs
Temp Pulse Resp BP Pulse Ox
98.5 F 74 10 118/69 96
08/28/25 07:11 08/28/25 06:00 08/28/25 06:00 08/28/25 06:00 08/28/25 06:00
Intake and Output
08/27/25 08/28/25 08/29/25
06:59 06:59 06:59
Intake Total 2907.2 / 3039.7 2104.5 / 2166.1 61.6 / 61.6
Output Total 1850 / 1850 2280 / 2320 40 / 40
Balance 1057.2 / 1189.7 -175.5 / -153.9 21.6 / 21.6
SaO2 96
Nasal Cannula flow liters per 4
minute
Physical Exam
General: Respiratory Distress, Comfortable and Other
HEENT: Normocephalic, Anicteric and Other (Thick neck, snoring when sleeping with partial apneas)
Cardiovascular: Regular Rhythm and Murmur (n)
Respiratory: Wheeze (n), Crackles (Few basilar), Rhonchi, Non-Labored Respirations, Accessory Resp Muscle Use (n) and Stridor (n)
GI: Soft, Distended and Non Tender
Neurology: Awake, Alert, No Motor Deficits and Lethargic (Sedated on Precedex)
Skin: Warm, Good Color, Cyanosis (n), Jaundice (n) and Rash (n)
Labs/Micro/Reports
Lab Data
08/28/25 03:28
08/28/25 03:28
Microbiology
08/25/25 22:29 Feces/Stool Salmonella/Shigella Culture - Preliminary
Culture in Progress
08/25/25 22:29 Feces/Stool Campylobacter Culture - Preliminary
Culture in Progress
08/25/25 22:29 Feces/Stool Stool Leukocytes - Final
08/25/25 22:29 Feces/Stool Cryptosporidium/Giardia - Final
Negative for Cryptosporidium and/or Giardia Lamblia
antigens.
08/25/25 22:29 Feces/Stool C. difficile GDH Antigen & Toxins - Final
C. difficile antigen positive, toxin negative.
Clostridium difficile present, but toxin not detected.
Patient may be a carrier, colonized with nontoxinogenic
strain or the level of toxin in sample is below detection
limits. This information should be used in conjunction with
the patient's clinical history.
[2025-08-28] MEDS: NOVOLOG FLEXPEN-LOW RESISTANCE SC ×2 (08:03→11:55)
[2025-08-28 08:11] LABS: Glucose - Point of Care 149 mg/dl (70-99)
[2025-08-28] MEDS: THIAMINE INJECTION 200 MG IV ×2 (08:13→19:58)
[2025-08-28] MEDS: FOLVITE 1 MG PO (08:14)
[2025-08-28] MEDS: HYDROPHOR 1 APPLIC TOPICAL (08:14)
[2025-08-28 08:27] LABS: Blood Urea Nitrogen 92 mg/dl (9-20); Calcium 7.8 mg/dl (8.4-10.2); Carbon Dioxide 22 mmol/L (22-30); Chloride 84 mmol/L (98-107); Estimated Creatinine Clearance 23 ml/min; Glucose 138 mg/dl (70-99); Potassium 3.8 mmol/L (3.5-5.1); Sodium 119 mmol/L (135-145); eGFR 10.07
[2025-08-28 08:29] LABS: Calprotectin, Fecal 38 ug/g (<=49)
[2025-08-28] MEDS: PHENOBARBITAL 97.5 MG IV ×3 (08:29→21:52)
--- NOTE | 2025-08-28 08:53 | PTCARENOTE ---
Ivone updated via phone.
Patient drowsy, opens eyes to name being called. Able to state his name, [facility] and [facility]. Able to swallow oral meds with sip of juice. Oral care done. Precedex gtt infusing to left PIV AC. 3% sodium infusing to right AC PIV. Bilateral
wrist restraints in place for safety. 4L NC for sleep apnea/snoring. MSAS 3. NSR w/ 1st degree on telemetry. Plan for BMP Q4 hours. Bed alarm set.
--- NOTE | 2025-08-28 10:25 | W.PN.HOSP.TC ---
Today's Communication/Plan
-
IV fluids per nephro
Albuterol nebulizer
Imodium as needed
Assessment / Plan
Assessment / Plan
40-year-old with history of pip-ebfnsxh-syeejclqe diabetes hypertension, hyperlipidemia, hyperlipidemia, obstructive sleep apnea not using CPAP, alcohol use disorder who presents to the Emergency Department with 2 weeks of diarrhea and found to have
NICOLAS as well severe hyponatremia in the ED. Patient also reported bright red blood per rectum in the past week prior to presentation. CT abdomen in the ED was notable for bilateral renal and perirenal edema as well as mild acute pancolitis. Labs
were notable for sodium of 104 HCO3 14 BUN 65 creatinine 6.8 CK 11,000 and high anion gap metabolic acidosis. Nephrology was consulted and started patient on aggressive fluid resuscitation the patient was admitted to the ICU where blood gas was
notable for severe acidosis and patient received bicarb drip, MSAS protocol, continued IV fluids, and IV antibiotics. GI was consulted for diarrhea and ordered stool studies which have so far been negative. During ICU stay patient became agitated
requiring Precedex and phenobarbital taper.
PLAN:
#Severe hyponatremia
#Hypovolemic hyponatremia due to diarrhea
sodium 104 on presentation
patient alert and oriented and with normal mental status
No history of seizures
on sertraline, on hold, suspect this is a mixture of hypovolemic hyponatremia with polydipsia
S/p replete crystalloids per nephrology 5 L total of NS
-Serum osmole 261 low
-urine osms to 13 low
- urine sodium 15 low
- TSH 3.5
- cortisol random 52
-Monitor serum sodium every 4 hours, improving sodium levels in the 119
- Nephrology consult appreciate recs
#Diarrhea, improving
acute to subacute diarrhea and occasionally bloody
History of colonoscopy about 5 years ago which was negative for IBD
CT scan with pancolitis
- C. difficile negative,
-stool cultures pending,
- stool WBC negative
- fecal calprotectin within normal limit
-Stool O&P
-IV Zosyn 4.5g over 12 hours
- consult GI, appreciate recs
-Imodium as needed
- Diet as tolerated for with free water restriction
#NICOLAS
#Rhabdomyolysis
#High anion gap metabolic acidosis with metabolic alkalosis
Anion gap 20 on presentation, 13 today
Delta gap 6, metabolic alkalosis likely due to contraction alkalosis due to diarrhea
In the setting of alcohol use rhabdomyolysis, acute renal failure
Lactic acid normal
CR on presentation 6.8 CR today 6.7
suspect ATN in the setting of severe diarrhea, diabetes and ARB use but clearly still volume down.
CPK of 11,000, rhabdo contributing to the NICOLAS, rhabdo in the setting of alcohol use
Magnesium 1.5
- Verdugo
- Hold statin
- urine creatinine 89 urine sodium 15, FENa 1% indeterminate
- IV fluids as above per nephrology
- UA with blood, consistent with rhabdo
- inflammatory panel with RF, CARLITOS, Complement C3/4, ASO, pending
- Monitor CK levels, downtrending
- Bicarb drip
#Transaminitis
#Alcohol use disorder
#Hepatic steatosis
Pint of vodka per day
last drink [address] with hepatic steatosis and hepatomegaly
AST elevated 4x ALT
Alk phos normal
T. bili L bilirubin 2.0
Likely due to alcohol use disorder and fatty liver
Continue to monitor
- MSAS protocol
- Patient requiring Precedex
#DM II
- hold metformin
- sliding scale insulin
#Asthma
Albuterol nebulizers as needed
DVT prophylaxis: Heparin subcu
CODE STATUS: Full code
Anticipated Discharge: > 48 hours
Subjective/Interval History
-
Patient was somnolent this a.m. Patient got agitated yesterday requiring Precedex. He reported 3 soft loose stools yesterday, but no bloody bowel movements yesterday. Assessed him again this p.m. patient reports doing okay despite diarrhea.
was at bedside answered questions to the best my ability. Date of Service: August 28, 2025
Objective Data
-
Labs:
Laboratory Results
08/27/25 08/28/25 08/28/25
23:25 03:28 07:58
WBC 2.3 L*
Hgb 9.7 L
Hct 27.8 L
Plt Count 102 L
Sodium 120 L 118 L* 119 L*
Potassium 3.7 4.2
Chloride 81 L 82 L
Carbon Dioxide 19 L 20 L
BUN 92 H 92 H
Creatinine 6.4 H* 6.6 H*
Glucose 150 H 144 H
Calcium 7.7 L 7.8 L
08/28/25 08/28/25 08/28/25
07:58 07:58 07:58
WBC
Hgb
Hct
Plt Count
Sodium Pending
Potassium 3.8 Pending
Chloride 84 L Pending
Carbon Dioxide 22
BUN
Creatinine
Glucose
Calcium
08/28/25 08/28/25 08/28/25
07:58 07:58 07:58
WBC
Hgb
Hct
Plt Count
Sodium
Potassium
Chloride
Carbon Dioxide Pending
BUN 92 H Pending
Creatinine 6.6 H* Pending
Glucose 138 H
Calcium
08/28/25 08/28/25 08/28/25
07:58 07:58 11:36
WBC
Hgb
Hct
Plt Count
Sodium Pending
Potassium Pending
Chloride Pending
Carbon Dioxide Pending
BUN Pending
Creatinine Pending
Glucose Pending Pending
Calcium 7.8 L Pending Pending
08/28/25 08/28/25 08/28/25
15:36 19:36 23:36
WBC
Hgb
Hct
Plt Count
Sodium Pending Pending Pending
Potassium Pending Pending Pending
Chloride Pending Pending Pending
Carbon Dioxide Pending Pending Pending
BUN Pending Pending Pending
Creatinine Pending Pending Pending
Glucose Pending Pending Pending
Calcium Pending Pending Pending
Vital Signs:
Vital Signs
Temp Pulse Resp BP Pulse Ox
98.5 F 74 10 115/91 96
08/28/25 07:11 08/28/25 10:00 08/28/25 10:00 08/28/25 10:00 08/28/25 10:00
I&O
08/27/25 08/28/25 08/29/25
06:59 06:59 06:59
Intake Total 2907.2 / 3039.7 2104.5 / 2166.1 289.2 / 289.2
Output Total 1850 / 1850 2280 / 2320 200 / 200
Balance 1057.2 / 1189.7 -175.5 / -153.9 89.2 / 89.2
Review of Systems
-
Unable to obtain full review of systems at this time due to: Acuity
History Source: Patient
Constitutional: Denies Fever
EENT: Denies Runny Nose
Respiratory: Reports Wheezing; Denies Cough or Trouble Breathing
Cardiac: Denies Chest Pain or Palpitations
Abdomen/GI: Reports Diarrhea; Denies Abdominal Pain, Nausea, Vomiting or Constipated
Genitourinary: Denies Dysuria
Physical Exam
-
General: Well Developed, Well Nourished, No Apparent Distress and Morbidly Obese; Negative Respiratory Distress or Fever
HEENT: Normocephalic and Atraumatic
Respiratory: Wheezes and Non Labored Respirations; Negative Crackles
Cardiac: Regular Rhythm and S1/S2; Negative Murmur
GI: Soft, Nontender, Normal Bowel Sounds and Distended
Musculoskeletal: No Clubbing and No Edema
Skin: Warm and Dry
Neuro: Awake and Alert
[2025-08-28 11:43] LABS: Glucose - Point of Care 135 mg/dl (70-99)
[2025-08-28 11:46] LABS: Blood Urea Nitrogen 94 mg/dl (9-20); Calcium 7.8 mg/dl (8.4-10.2); Carbon Dioxide 21 mmol/L (22-30); Chloride 85 mmol/L (98-107); Estimated Creatinine Clearance 23 ml/min; Glucose 130 mg/dl (70-99); Potassium 3.8 mmol/L (3.5-5.1); Sodium 119 mmol/L (135-145); Uric Acid 10.0 mg/dl (3.5-8.5); eGFR 9.89
--- NOTE | 2025-08-28 12:00 | PTCARENOTE ---
Systems reviewed. Pt more alert, but continues to be forgetful to events that happened the last few days. Re-oriented to place and situation. prn albuterol for wheezing.. FORD when turning. tapering Precedex. loose incont brown stools, barrier cream
applied, BS hyperactive. Dry cough present. bases with faint crackles; encouraged deep breathing. left elbow bruise. NSR w/ 1st degree on tele. at bedside, tearful about situation... support provided. bed alarm set.
[2025-08-28] MEDS: ATIVAN 1 MG IV (12:50)
[2025-08-28] MEDS: NSS (PRESERVATIVE FREE) 5 ML IV (12:51)
--- NOTE | 2025-08-28 14:17 | W.PN.NEPH.PH ---
Today's Communication / Plan
-
Samsca x 1
Assessment/Plan
-
Assessment
Colitis
Large-volume diarrhea
Hyponatremia
Anion gap metabolic acidosis
Acute kidney injury
Rhabdomyolysis 11,000
Elevated liver function tests
Chronic alcohol use
Diabetes mellitus type 2
Hypertension
Hyperlipidemia
Plan
Follow BMP every 4 hours
Check lactate= normal
PVR was only 72 cc
Ordered serology= pending
Careful not to overcorrect sodium.= Wellbutrin new for him in the last 3 weeks though this causes SIADH which is not consistent with urine studies though significant alcohol use more consistent
At this time no acute need for dialysis from a electrolyte or volume standpoint
Alcohol withdrawal prophylaxis Precedex
Maintain Verdugo catheter to be placed, better monitor critically ill patient
Sodium improved to 118 with tonic saline to 119.
Nonoliguric.
Will give 1 dose of Samsca 7.5.
Fluid restrict.
Patient is nonoliguric but overall positive since admission.
Consider diuretic therapy tomorrow.
And discussed with critical care team
Continue every 4 BMP

Critical care time spent 60minutes
-
-
Date of Service: August 28, 2025
CC / HPI / ROS
-
Chief Complaint:
Diarrhea
History of Present Illness:
Acute kidney injury and metabolic acidosis creatinine above 6 and bicarbonate bicarb 10 with normal lactate
Review of Systems:
Withdrawal
Diarrhea resolved
Nonoliguric
Labs
-
Labs:
WBC 2.3 10^3/uL (4.8-10.8) L* 08/28/25 03:28
RBC 2.94 10^6/uL (4.70-6.10) L 08/28/25 03:28
Hgb 9.7 g/dL (13.0-18.0) L 08/28/25 03:28
Hct 27.8 % (39.0-52.0) L 08/28/25 03:28
Plt Count 102 10^3/uL (130-400) L 08/28/25 03:28
eGFR 9.89 08/28/25 11:14
Phosphorus 6.9 mg/dl (2.5-4.5) H 08/26/25 04:17
Albumin 3.8 g/dl (3.5-5.0) 08/27/25 04:13
Physical Exam
-
Vital Signs:
Vital Signs
Temp Pulse Resp BP Pulse Ox
98.6 F 81 19 101/81 91
08/28/25 11:03 08/28/25 14:02 08/28/25 14:02 08/28/25 13:00 08/28/25 14:02
--- NOTE | 2025-08-28 14:35 | PTCARENOTE ---
Patient forgetful and cooperative with care, bilateral wrist restraints removed. Pt eating a late lunch. Call melchor within reach. Bed alarm set. at bedside.
[2025-08-28] MEDS: SAMSCA 7.5 MG PO (15:16)
[2025-08-28] MEDS: IMODIUM 2 MG PO ×2 (15:16→22:11)
[2025-08-28] MEDS: VENTOLIN NEBULES 1.25 MG INH (15:38)
[2025-08-28 16:42] LABS: Blood Urea Nitrogen 97 mg/dl (9-20); Calcium 7.5 mg/dl (8.4-10.2); Carbon Dioxide 21 mmol/L (22-30); Chloride 85 mmol/L (98-107); Estimated Creatinine Clearance 24 ml/min; Glucose 164 mg/dl (70-99); Potassium 3.8 mmol/L (3.5-5.1); Sodium 123 mmol/L (135-145); eGFR 10.45
[2025-08-28 16:44] LABS: Serine Protease-3, IgG 1 AU/mL (0-19)
--- NOTE | 2025-08-28 16:45 | PTCARENOTE ---
1645: TT Dr. Dubois 1600 lab results: Na 123/ creatinine 6.4. No changes to medications; Can discontinue the serial BMPs. at bedside, updated.
Systems reviewed. Pt drowsy, follows commands- Precedex gtt off. Restraints remain off. MSAS 3-4. 4L NC remains in place as pt has sleep apnea and desats. Loose stool in bedpan. Skin intact; bruising to left elbow/FA & LLQ abd. Bed alarm set.
[2025-08-28] MEDS: NOVOLOG FLEXPEN-LOW RESISTANCE 3 UNITS SC (17:21)
[2025-08-28 17:29] LABS: Glucose - Point of Care 276 mg/dl (70-99)
--- NOTE | 2025-08-28 20:43 | PTCARENOTE ---
report received, assessments per work list. patient drowsy, oriented to person place, month and year. vague about present situation and reason for hospitalization. forgetful. bed alarm for patient safety. exertional wheezing, upper airway. orthopnea
and dyspnea with minimal exertion. Verdugo draining clear yellow urine. call melchor in reach
[2025-08-28 22:10] LABS: Glucose - Point of Care 189 mg/dl (70-99)
--- NOTE | 2025-08-28 23:20 | PTCARENOTE ---
Addendum entered by Shira Peres RN 08/29/25 00:49:
patient with sleep apnea. pulse oximeter dips to 50's, oxygen increased to 2 liters
Original Note:
reassessed, increased urine output. on bedpan, had large loose stool. prn Imodium per orders. oxygen weaned. remains dyspneic with minimal exertion. exertional wheezes unchanged. bed alarm maintained. call melchor in reach
[2025-08-29] VITALS (42 sets, daily range): BP systolic 113–167; BP diastolic 73–110; BMI 40.8
[2025-08-29] MEDS: ZOSYN 50 IV (01:26)
--- NOTE | 2025-08-29 03:42 | PTCARENOTE ---
patient reassessed. continues to have large urine output. labs sent. wheezes unchanged
[2025-08-29 04:03] LABS: Hematocrit 27.5 % (39.0-52.0); Hemoglobin 9.7 g/dL (13.0-18.0); Mean Corp Hgb Conc. 35.3 g/dL (33.0-37.0); Mean Corpuscular Volume 91.4 fL (80.0-94.0); Platelet Count 136 10^3/uL (130-400); Red Cell Dist. Width 12.9 % (11.5-14.5)
[2025-08-29 04:20] LABS: Blood Urea Nitrogen 93 mg/dl (9-20); Calcium 7.4 mg/dl (8.4-10.2); Carbon Dioxide 25 mmol/L (22-30); Chloride 89 mmol/L (98-107); Estimated Creatinine Clearance 28 ml/min; Glucose 105 mg/dl (70-99); Potassium 3.6 mmol/L (3.5-5.1); Sodium 127 mmol/L (135-145); eGFR 13.11
[2025-08-29] MEDS: KCL 270 MEQ IV (05:55)
--- NOTE | 2025-08-29 07:10 | PTCARENOTE ---
Received pt laying in bed. He is awake and alert. Slow to respond verbally to simple questions. We discussed the plan of care to have him OOB to the chair and to use the BR. Also stressed the importance to diet and fluid restriction adherence while
hospitalized. I informed him I would discuss with the team of having his calories increased if possible. He verbalized his understanding. He is able to reposition himself up in the bed. Audible wheeze with activity. RA pulse ox 88% and denies SOB.
With 2 liters oxygen 93%. +peripheral pulses. +1 anasarca. Posteriorly his breath sounds are dim. Occasional moist non-productive cough. Obese with hyperactive BSX4. Temperature sensing Indwelling Verdugo catheter secured with leg strap. Draining
large amounts of yellow urine. Upper extremities with scattered ecchymosis, and left lateral abdomen with large area of gross ecchymosis blue in color. Pt verbalized that he has no idea how that got there. Heels extremely dry with fissures.
Petroleum applied to heels as ordered. I informed him of the importance of caring for his feet due to his diabetic neuropathy. Due to his poor sensation he may not notice any infected wounds or impalement of objects into his feet. He was also
informed why Phenobarbital is used in alcohol withdrawal and that we are continuing to taper per protocol. He was also informed to notify me if he needs to use the BR, or if he is feeling anxious. Supportive care provided. Safe environment
maintained.
[2025-08-29] MEDS: NOVOLOG FLEXPEN-LOW RESISTANCE SC (07:25)
[2025-08-29 07:30] LABS: Glucose - Point of Care 111 mg/dl (70-99)
--- NOTE | 2025-08-29 08:23 | W.PN.INTV ---
Today's Communication / Plan
Recommendations
Supplemental oxygen as needed to keep sats >90-94%
CPAP 10 cm if needed-reviewed diagnosis of probable moderate to severe sleep apnea with nursing
Antibiotics now stopped
Off Precedex and doing well on phenobarbital and prn Ativan
Hyponatremia correction and NICOLAS management per nephrology
Patient is stable for downgrade to IMU level of care. No additional recommendations at this time. Stucco Laborer/Pulmonary service will now sign off. Please reconsult if there are any additional questions/concerns, or if patient's respiratory status
deteriorates.
Assessment
-
40-year-old non-smoking morbidly obese daily alcohol and taking male with a history of hypertension, hyperlipidemia, and diabetes presented with 2 weeks of persistent diarrhea that was nonbloody and found to have severe acute kidney injury, severe
hyponatremia-linen folder consulted for critical care management 08/26/2025.
Severe hyponatremia-serum sodium 103 on admission (08/25/2025)
Diarrheal illness-nonbloody
Pancolitis
Cystitis
Severe diffuse hepatic steatosis
Severe hepatomegaly and splenomegaly
NICOLAS
Metabolic acidosis with increased anion gap
Hypomagnesemia
Hypocalcemia
Rhabdomyolysis
Hyperglycemia
Alcohol dependence
Elevated LFTs
Mild coagulopathy
Mild rbtpgk-pvhwywfyow-srsopyuswb 10.2
Thrombocytopenia-platelet 96
Abnormal EKG-troponin pending
Conditions present prior to admission:
Morbid obesity-on Monjaro.
EUNICE/CPAP intolerant.
Hypertension.
Hyperlipidemia.
Diabetes.
Daily EtOH.
GERD
TMJ
Anxiety
Umbilical hernia
Major depression
Plan
Patient has improved, and is no longer requiring Precedex drip which has been off since yesterday afternoon on 08/28
Psych consult recommended
Patient drinks a pint of vodka daily � continue with phenobarbital protocol as well as thiamine and folic acid
MSAS protocol
Alcohol cessation counseling
Supplemental oxygen as needed to maintain saturations >90-94%
Would try CPAP tonight at minimum 10 cm - patient states he has tried it in the past and did not tolerate in the outpatient setting; if unable to tolerate then he can discuss additional options as an outpatient like oral appliance device vs Inspire
device (unclear if has had a sleep study before)
Aspiration precautions
Nebulizers if needed-currently not bronchospastic
Aspiration precautions
Follow serum sodium level closely-improved and now 127
Recommendations appreciated per nephrology
Continue trending serum sodium via serial chemistry
Avoid overcorrection with <8-10 mmol/L in a 24-hour period, and <16-18 mmol/L in a 48-hour period
Monitor neurologic status closely-rapid correction can rarely leads to osmotic demyelination syndrome-very slow correction thus far
s/p tolvaptan on 08/28/2025
TSH was WNL on admission
Cortisol also was normal
Urine osmolarity was low on admission at 213
Trend sCr, monitor UOP
Nephro on board, recs appreciated
Defer need for HD to nephro
Keep K>3.5, Mg>1.8, while avoiding hyperkalemia
Trend serum HCO3 levels
Trend CPK until <500 (peaked at 11,896 on 08/26/2025)
Monitor diarrhea
GI evaluation of pancolitis and diarrhea
Stool studies 08/25/2025-C. difficile antigen positive but toxin negative, negative Cryptosporidium, stool cultures including Salmonella, Campylobacter, E. coli Shiga-like toxin all negative, no stool WBCs
Follow LFTs
Last dose of antibiotics (Zosyn) given overnight
Follow hemoglobin and platelet
Transfuse if needed to keep Hb>7-8g/dL, plt>20k (unless bleeding then keep >50k)
Maintain euglycemia with goal BG >100 and <180
Abnormal EKG
Troponin trended
DVT prophylaxis-on heparin subcu
ADA (A1c: 6.5 on 08/26/2025)
Early mobilization
Patient is stable for downgrade to IMU level of care. No additional recommendations at this time. Stucco Laborer/Pulmonary service will now sign off. Thank you for allowing us to be involved in the care of this patient. Please reconsult if there
are any additional questions/concerns, or if patient's respiratory status deteriorates.
Diagnostic data:
Chest x-ray 08/25/2025-moderate elevation right hemidiaphragm
CT abdomen and pelvis 08/25/2025-severe bilateral renal and perirenal edema, differential infectious pyelonephritis or inflammatory renal disease such as vasculitis, mild acute pancolitis, severe diffuse hepatic steatosis, severe hepatomegaly,
moderate splenomegaly, cystitis
Total time spent today was 58 minutes for this encounter. Time includes reviewing laboratory test/imaging results, reviewing pertinent medical records, obtaining and reviewing medical history, performing an appropriate exam, ordering medications,
tests and procedures. Time also includes documentation of this encounter, coordinating patient care and communicating with other healthcare professionals. Total time does not include separately billed tests performed on this date of service.
Subjective Dataa
Subjective Data
Date of Service:
Date of Service: August 29, 2025
Chief Complaint: Stucco Laborer Follow Up and Pulmonary Follow Up
Subjective:
Patient seen and evaluated this morning. Sodium 127 this morning, which is steadily improving as he was 123 yesterday afternoon. Afebrile overnight. Currently on 2 L/min nasal cannula saturating 90%. No acute events reported overnight. He is
upset that he has a fluid restriction.
Review of Systems
General: Other (Negative unless mentioned above)
Objective Data
Data Reviewed
Vital Signs / I&O / Oxygen:
Vital Signs
Temp Pulse Resp BP Pulse Ox
99.6 F 99 14 133/73 96
08/29/25 07:09 08/29/25 07:00 08/29/25 07:00 08/29/25 06:00 08/29/25 07:41
Intake and Output
08/28/25 08/29/25 08/30/25
06:59 06:59 06:59
Intake Total 2104.5 / 2166.1 1229.6 / 1297.1 67.5 / 67.5
Output Total 2280 / 2320 5480 / 6105 625 / 625
Balance -175.5 / -153.9 -4250.4 / -4807.9 -557.5 / -557.5
SaO2 96
Nasal Cannula flow liters per 2
minute
Physical Exam
General: Respiratory Distress (n) and Comfortable
HEENT: Normocephalic, Anicteric and Other (Thick neck, snoring when sleeping with partial apneas)
Cardiovascular: S1-S2, Murmur (n) and Peripheral Edema (n)
Respiratory: Wheeze (n), Crackles (Few basilar), Rhonchi (n), Non-Labored Respirations, Accessory Resp Muscle Use (n) and Stridor (n)
GI: Soft, Distended (Abdominal obesity) and Non Tender
Neurology: Awake, Alert and Tremors (n)
Skin: Warm, Dry, Cyanosis (n), Jaundice (n) and Rash (n)
Labs/Micro/Reports
Lab Data
08/29/25 03:34
08/29/25 03:34
Microbiology
08/25/25 22:29 Feces/Stool Salmonella/Shigella Culture - Preliminary
Culture in Progress
08/25/25 22:29 Feces/Stool Campylobacter Culture - Final
No Campylobacter species isolated.
08/25/25 22:29 Feces/Stool Stool Leukocytes - Final
08/25/25 22:29 Feces/Stool Cryptosporidium/Giardia - Final
Negative for Cryptosporidium and/or Giardia Lamblia
antigens.
08/25/25 22:29 Feces/Stool C. difficile GDH Antigen & Toxins - Final
C. difficile antigen positive, toxin negative.
Clostridium difficile present, but toxin not detected.
Patient may be a carrier, colonized with nontoxinogenic
strain or the level of toxin in sample is below detection
limits. This information should be used in conjunction with
the patient's clinical history.
[2025-08-29] MEDS: IMODIUM 2 MG PO ×3 (08:58→18:18)
[2025-08-29] MEDS: HEPARIN 5000 UNITS SC ×3 (08:59→23:03)
[2025-08-29] MEDS: FOLVITE 1 MG PO (08:59)
[2025-08-29] MEDS: PHENOBARBITAL 97.5 MG IV (08:59)
[2025-08-29] MEDS: HYDROPHOR 1 APPLIC TOPICAL (09:00)
[2025-08-29] MEDS: VITAMIN B1 100 MG PO ×2 (09:09→21:12)
[2025-08-29 09:35] LABS: ALT (SGPT) 56 U/L (0-50); AST (SGOT) 115 U/L (17-59); Albumin 3.7 g/dl (3.5-5.0); Alkaline Phosphatase 53 U/L (38-126); Total Protein 6.4 g/dl (6.3-8.2)
--- NOTE | 2025-08-29 10:39 | PTCARENOTE ---
Discussed the plan of care with Dr. Ortiz and will reassess labs later today as ordered.
--- NOTE | 2025-08-29 11:01 | W.PN.NEPH.PH ---
Today's Communication / Plan
-
see plan
Assessment/Plan
-
Assessment
Colitis
Large-volume diarrhea
Hyponatremia
Anion gap metabolic acidosis
Acute kidney injury
Rhabdomyolysis 11,000
Elevated liver function tests
Chronic alcohol use
Diabetes mellitus type 2
Hypertension
Hyperlipidemia
Plan
Severe hyponatremia -improving appropriately s/p samsca on 08/28
sodium at 127, repeat labs this pm
cont FR and ok for increasing calories
NICOLAS-suspect ATN from Rhabdo , serologies negative
UA microhematuria and 3+alb , check U PCR
CT shows severe bilat perirenal edema and mild distension of right intracollecting system and pelvis DD pyelo vs connective tissue
PVR was only 72 cc, keep gallagher till cr cont to improve
he is polyuric possible from samsca and post ATN diuresis phase, cr better today at 5.3
CK is improving to 915, LFTs are better too
no emergent indication of HD and likely will escape
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
Alcohol withdrawal prophylaxis with Phenobarbital and off precedex on 08/28
would cont fluid restrict 48ounces/day
mild hypocalcemia-check vit d
recheck mg
Bp stable
d/w pt and at bedside
d/w nurisng
high risk encounter
-
-
Date of Service: August 29, 2025
CC / HPI / ROS
-
Chief Complaint:
Diarrhea
History of Present Illness:
Acute kidney injury and metabolic acidosis
cr improving to 5.3, polyuria post samsca 119
sodium up at 127
bps table k normal
Review of Systems:
more of his snesses today
no pain except gallagher catheter area
no cough
no n/v
Labs
-
Labs:
WBC 3.8 10^3/uL (4.8-10.8) L 08/29/25 03:34
RBC 3.01 10^6/uL (4.70-6.10) L 08/29/25 03:34
Hgb 9.7 g/dL (13.0-18.0) L 08/29/25 03:34
Hct 27.5 % (39.0-52.0) L 08/29/25 03:34
Plt Count 136 10^3/uL (130-400) D 08/29/25 03:34
Sodium 127 mmol/L (135-145) L 08/29/25 03:34
Potassium 3.6 mmol/L (3.5-5.1) 08/29/25 03:34
Chloride 89 mmol/L (98-107) L 08/29/25 03:34
Carbon Dioxide 25 mmol/L (22-30) 08/29/25 03:34
BUN 93 mg/dl (9-20) H 08/29/25 03:34
Creatinine 5.3 mg/dL (0.7-1.3) H* 08/29/25 03:34
eGFR 13.11 08/29/25 03:34
Glucose 105 mg/dl (70-99) H 08/29/25 03:34
Calcium 7.4 mg/dl (8.4-10.2) L 08/29/25 03:34
Phosphorus 6.9 mg/dl (2.5-4.5) H 08/26/25 04:17
Physical Exam
-
Vital Signs:
Vital Signs
Temp Pulse Resp BP Pulse Ox
99.6 F 102 16 143/92 90
08/29/25 07:09 08/29/25 10:17 08/29/25 10:17 08/29/25 10:17 08/29/25 10:17
Cardiovascular:: Regular rate and rhythm
Respiratory:: Bilateral: CTA
Lung Excursion:: Normal
Abdomen:: Nontender and Soft
Extremity Edema:: None: Bilateral:
Gallagher Catheter: Yes
--- NOTE | 2025-08-29 11:48 | W.PN.HOSP.TC ---
Addendum entered and electronically signed by Vale Liu MD 08/29/25 14:45:
Attending�addendum:
I saw and evaluated the patient. I reviewed the resident�s note and agree with findings and plan as documented in the resident�s note.� Family at bedside,�patient seen and examined at bedside, denies any chest pain or shortness of breath, no
abdominal pain, no nausea, no vomiting, no diarrhea or constipation.
Still unsteady.
Physical�exam:
GENERAL : Patient is awake, alert, oriented x3
HEENT: Nonicteric sclerae, PERRLA, EOMI. Oropharynx clear. Moist mucous membranes. Conjunctivae appear well perfused.
CHEST: Chest wall is nontender.
HEART: Regular rate and rhythm without murmurs.
LUNGS: Clear to auscultation bilaterally.
ABDOMEN: Soft, positive bowel sounds, nontender, no organomegaly.
RECTAL: Deferred.
MUSCLES/EXTREMITIES: No abnormal range of motion, no swelling.SKIN: No rash, no excessive bruising, petechiae, or purpura.
NEUROLOGIC: Cranial nerves II-XII intact without motor/sensory deficit.
�
Assessment/plan:
Severe hyponatremia.
Continue to improve.
Currently 127
Acute renal failure.
ATN
Secondary to rhabdomyolysis
Creatinine improving
High anion gap metabolic acidosis.
Possible starvation ketosis
Improving
Transaminitis.
Improved
CODE STATUS: Full code
DVT prophylaxis: Heparin
Diet: Diabetic diet
Family communication: Discussed with family at bedside
Disposition: Downgrade to IM
�
Total time spent on today�s encounter was 74 minutes which included time spent in counseling the patient/family regarding diagnosis and treatment plan as listed above, goals of care, and symptom management. Case was discussed with nursing staff,
specialists, and care coordinators/case management. All labs and imaging personally reviewed by me. Remainder the time spent in detailed review of previous records, lab data, imaging, and other medical provider documentation.
Original Note:
Today's Communication/Plan
-
Off Precedex 08/28
Psych consult
Off 3%
Assessment / Plan
Assessment / Plan
40-year-old with history of tqk-rclymji-muoezrxmc diabetes hypertension, hyperlipidemia, hyperlipidemia, obstructive sleep apnea not using CPAP, alcohol use disorder who presents to the Emergency Department with 2 weeks of diarrhea and found to have
NICOLAS as well severe hyponatremia in the ED. Patient also reported bright red blood per rectum in the past week prior to presentation. CT abdomen in the ED was notable for bilateral renal and perirenal edema as well as mild acute pancolitis. Labs
were notable for sodium of 104 HCO3 14 BUN 65 creatinine 6.8 CK 11,000 and high anion gap metabolic acidosis. Nephrology was consulted and started patient on aggressive fluid resuscitation the patient was admitted to the ICU where blood gas was
notable for severe acidosis and patient received bicarb drip, MSAS protocol, continued IV fluids, and IV antibiotics. GI was consulted for diarrhea and ordered stool studies which have so far been negative. During ICU stay patient became agitated
requiring Precedex and phenobarbital taper. Over time sodium continued to improve and creatinine began to come down. Patient was taken off of Precedex due to decrease in agitation. Patient was downgraded to IMU and psychiatry was consulted for
management of depression.
PLAN:
#Severe hyponatremia
#Hypovolemic hyponatremia due to diarrhea
sodium 104 on presentation
patient alert and oriented and with normal mental status
No history of seizures
on sertraline, on hold, suspect this is a mixture of hypovolemic hyponatremia with polydipsia
S/p replete crystalloids per nephrology 5 L total of NS
-Serum osmole 261 low
-urine osms to 13 low
- urine sodium 15 low
- TSH 3.5
- cortisol random 52
-Monitor serum sodium every 4 hours, improving sodium 127
- Nephrology consult appreciate recs
#Diarrhea, improving
acute to subacute diarrhea and occasionally bloody
History of colonoscopy about 5 years ago which was negative for IBD
CT scan with pancolitis
- C. difficile negative,
-stool cultures pending,
-Campylobacter negative
- stool WBC negative
- fecal calprotectin within normal limit
-Stool O&P
- DC IV Zosyn
- consult GI, appreciate recs
-Imodium as needed
- Diet as tolerated
#NICOLAS, improving creatinine
#Rhabdomyolysis
#High anion gap metabolic acidosis with metabolic alkalosis
Anion gap 20 on presentation, 13 today
Delta gap 6, metabolic alkalosis likely due to contraction alkalosis due to diarrhea
In the setting of alcohol use rhabdomyolysis, acute renal failure
Lactic acid normal
CR on presentation 6.8 CR today 6.7
suspect ATN in the setting of severe diarrhea, diabetes and ARB use but clearly still volume down.
CPK of 11,000, rhabdo contributing to the NICOLAS, rhabdo in the setting of alcohol use
Magnesium 1.5
- Verdugo
- Hold statin
- urine creatinine 89 urine sodium 15, FENa 1% indeterminate
- IV fluids as above per nephrology
- UA with blood, consistent with rhabdo
- UA microhematuria and 3+alb , check U PCR
- inflammatory panel with RF, CARLITOS, Complement C3/4, ASO, negative
- Monitor CK levels, downtrending
#Transaminitis, downtrending
#Alcohol use disorder
#Hepatic steatosis
Pint of vodka per day
last drink [address] with hepatic steatosis and hepatomegaly
AST elevated 4x ALT
Alk phos normal
T. bili L bilirubin 2.0
Likely due to alcohol use disorder and fatty liver
Continue to monitor
- MSAS protocol
- Off Precedex 08/28
#DM II
On Mounjaro
- hold metformin
- sliding scale insulin
#Asthma
#EUNICE
CPAP at night
Albuterol nebulizers as needed
#Depression
Patient recently started sertraline
Hold sertraline due to hyponatremia
- Psych consult
DVT prophylaxis: Heparin subcu
CODE STATUS: Full code
Anticipated Discharge: 24 - 48 hours
Subjective/Interval History
-
Patient seen sitting in chair. More alert than yesterday and reports feeling a lot better. Patient reported no abdominal pain no nausea no vomiting no shortness of breath no chest pain no fevers or chills. Patient amenable to seeing psych for
management of depression. Date of Service: August 29, 2025
Objective Data
-
Labs:
Laboratory Results
08/29/25 08/29/25 08/29/25
03:34 07:56 14:00
WBC 3.8 L
Hgb 9.7 L
Hct 27.5 L
Plt Count 136 D
Sodium 127 L Pending
Potassium 3.6 Pending
Chloride 89 L Pending
Carbon Dioxide 25 Pending
BUN 93 H Pending
Creatinine 5.3 H* Pending
Glucose 105 H Pending
Calcium 7.4 L Pending
Total Bilirubin 1.1 Pending
AST 115 H Pending
ALT 56 H Pending
Alkaline Phosphatase 53 Pending
Vital Signs:
Vital Signs
Temp Pulse Resp BP Pulse Ox
99.7 F 95 14 145/96 93
08/29/25 11:06 08/29/25 11:03 08/29/25 11:03 08/29/25 11:03 08/29/25 11:03
I&O
08/28/25 08/29/25 08/30/25
06:59 06:59 06:59
Intake Total 2104.5 / 2166.1 1229.6 / 1297.1 912.0 / 912.0
Output Total 2280 / 2320 5430 / 0246 1999
Balance -175.5 / -153.9 -4250.4 / -4807.9 -1088.0 / -1088.0
Review of Systems
-
History Source: Patient and Family
Constitutional: Denies Fever or Chills
EENT: Denies Runny Nose
Respiratory: Reports Wheezing; Denies Cough or Trouble Breathing
Cardiac: Denies Chest Pain or Palpitations
Abdomen/GI: Denies Abdominal Pain, Nausea, Vomiting, Diarrhea or Constipated
Genitourinary: Denies Dysuria
Neuro: Reports Ataxia; Denies Dizzy, Headache or Weakness
Physical Exam
-
General: Well Developed, Well Nourished, No Apparent Distress, Comfortable and Morbidly Obese; Negative Respiratory Distress or Fever
HEENT: Normocephalic and Atraumatic
Respiratory: Clear to Auscultation and Non Labored Respirations; Negative Wheezes or Crackles
Cardiac: Regular Rhythm and S1/S2; Negative Murmur
GI: Soft, Nontender, Nondistended and Normal Bowel Sounds
Musculoskeletal: No Clubbing and No Edema
Skin: Warm and Dry
Neuro: Awake, Alert and Oriented
[2025-08-29] MEDS: NOVOLOG FLEXPEN-LOW RESISTANCE 1 UNITS SC ×2 (12:27→18:06)
[2025-08-29 12:34] LABS: Glucose - Point of Care 169 mg/dl (70-99)
--- NOTE | 2025-08-29 13:06 | PTCARENOTE ---
Pt was informed that he is only able to take in 400ml's then he will be at his 1440ml fluid restriction. All bottles that his brought in were removed from the room. He is aware that mer can have the 1 bottle of liquids and what is already in
his cup for the remainder of the the day.
--- NOTE | 2025-08-29 13:34 | PTCARENOTE ---
Spoke with his regarding her husbands problem with maintaining his fluid restriction. I had suggested sugarless gum or hard candies.
[2025-08-29] MEDS: ATIVAN 1 MG PO (14:23)
--- NOTE | 2025-08-29 14:23 | PN.CDI ---
CDI
- -
CDI:
Physician Documentation Request
Admit Date: 08/25/25 22:58
Dear Doctor/Resident,
Please review the following and provide your response in the progress notes.
Clinical Indicators:
Pt admitted with Severe hyponatremia/ATN/Acute metabolic acidosis / Rhabdomyolysis
Pt care note 08/27 @ 0000,' Pt. becoming more forgetful and uncooperative. Pt. chair alarm going off. Went to assess alarm and patient. Found patient in bathroom sitting on toilet with IV disconnected and bleeding at site....'
Pt care note 08/27 @ 0430,' Pt. bed alarm going off. Immediately went into room to assess situation. Pt. confused and trying to stand up on his own...PRN Ativan given based on MSAS score, see MAR. Pt. remains confused and thrashing around bed.
Precedex gtt started...'
Pt care note 08/27@ 1999,' Pt. impulsive, attempting to jump out of bed. Redirected back into bed. PRN Ativan given per MSAS score, see MAR....'
Pt care noted 08/28@ 0000,' Pt. continues to be impulsive and confused. Multiple attempts by patient to get out of bed. Responded to bed alarm promptly each time. Pt. educated on why it is unsafe for him to get out of bed at this time. He is
confused and gait is unsteady. Precedex gtt has been restarted. PRN Ativan per MSAS....'
Pt care note 08/28@ 8053,' Patient drowsy, opens eyes to name being called. Able to state his name, ... Precedex gtt infusing to left PIV AC. 3% sodium infusing ...Bilateral wrist restraints in place for safety....'
Based on the above, could you clarify in the Progress Notes and Discharge Summary which, if any of the following, is the most likely etiology of the confusion/altered mental status.
Metabolic Encephalopathy
Toxic metabolic Encephalopathy
Acute Delirium
Other ( please specify)
Use of terms such as suspected, likely, concern for, or probable (associated with a specific diagnosis that is being evaluated, monitored, or treated as if it exists) are acceptable and can be coded in the inpatient setting, when documented at the
time of discharge.
Thank you,
Spring Hinson RN
CDI Specialist
[facility]
Please use your independent medical judgment in providing your response.
--- NOTE | 2025-08-29 14:45 | PTCARENOTE ---
Pt with his eyes closed. Desaturating to 77% on RA. Oxygen titrated to 4 liters nasal cannula wile asleep. Pulse ox now 96% or >.
[2025-08-29 15:22] LABS: Albumin 4.1 g/dl (3.5-5.0); Blood Urea Nitrogen 86 mg/dl (9-20); Calcium 7.4 mg/dl (8.4-10.2); Carbon Dioxide 25 mmol/L (22-30); Chloride 94 mmol/L (98-107); Estimated Creatinine Clearance 34 ml/min; Glucose 181 mg/dl (70-99); Magnesium 1.6 mg/dl (1.6-2.3); Potassium 3.6 mmol/L (3.5-5.1); Sodium 134 mmol/L (135-145); eGFR 16.84
[2025-08-29] MEDS: LUMINAL 64.8 MG PO ×2 (16:02→21:12)
--- NOTE | 2025-08-29 16:22 | CM ---
Chart reviewed plan is to home when stable.
Plan; Home when stable.
[2025-08-29 17:08] LABS: Rheumatoid Agglutinin Less Than 10 IU (<10 IU)
[2025-08-29 17:56] LABS: Glucose - Point of Care 184 mg/dl (70-99)
[2025-08-29] MEDS: KCL 40 MEQ PO (18:16)
[2025-08-29] MEDS: MAGNESIUM OXIDE 400 MG PO (18:17)
--- NOTE | 2025-08-29 18:23 | PTCARENOTE ---
pt reported blood when he was wiping his rectum. He had already flushed the toilet. He was instructed to call for the nurse prior to flushing the toilet if there was blood when wiping. He verbalized his understanding.
[2025-08-29 20:34] LABS: Blood Urea Nitrogen 84 mg/dl (9-20); Calcium 7.6 mg/dl (8.4-10.2); Carbon Dioxide 28 mmol/L (22-30); Chloride 95 mmol/L (98-107); Estimated Creatinine Clearance 40 ml/min; Glucose 233 mg/dl (70-99); Potassium 3.8 mmol/L (3.5-5.1); Sodium 135 mmol/L (135-145); eGFR 20.17
--- NOTE | 2025-08-29 22:04 | CS.PSYCHR ---
Consult Summary - Psychiatry
-
pt seen this am to assist with management of alcohol use disorder,
40 yo man admitted after ongoing diarrhea over two weeks, worsening. Seriously hypnatremic (Na 103, creatinine 6.3) in setting of excessive alcohol use. Very weak, but very angry that (nurse) had brought him to hospital.
Has had one prior admission for detox, then to 30 day rehab at [facility]. Was able to stay sober for 19 moths, until September 2023. Not currently receiving any psychiatric care, but had been started on sertraline by PCP 3 weeks ago for
depression.
Medical history significant for obesity, diabetes, hyperlipidemia, obstructive sleep apnea
Pt is very quiet on exam, does not betray any emotion as he gives his life story
Born and raised [facility], one younger brother. Father oziel, mother nurse. Attended [employer], on [employer] team, won golf scholarship to [employer]. Began drinking heavily in college but able to be in control. Received degree in finance, has
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 'I have everything but I can't enjoy it.' Not working currently, financially ok till March per patient.
is committed to relationship, supportive, but unwilling to allow him to continue drinking and stay together (has made plans if he does not stop.)
States pt berated her for bringing him here, despite having had discussion with about how to get detox to start IOP
MSE: alert oriented constricted affect, States he is depressed, denies being suicidal. No cognitive deficits, no signs of psychosis. Insight and judgment limited.
Impression: Alcohol use disorder, severe. Major depression recurrent
Rec. Would continue with careful alcohol withdrawal management. Will hold off on antidepressant medication, will continue with talk therapy sessions for now.
[2025-08-29 22:07] LABS: Glucose - Point of Care 145 mg/dl (70-99)
--- NOTE | 2025-08-29 22:30 | RESPNOTE ---
PT was asked if he would like to comply with CPAP therapy HS as ordered, but refused. PT was told that if he changes his mind, to let his RN know and I would put it on for him.
[2025-08-30] VITALS (19 sets, daily range): BP systolic 127–178; BP diastolic 98–117; PULSE 117; O2SAT 92–95; BMI 42.6
[2025-08-30 04:06] LABS: Hematocrit 28.2 % (39.0-52.0); Hemoglobin 9.6 g/dL (13.0-18.0); Mean Corp Hgb Conc. 34.0 g/dL (33.0-37.0); Mean Corpuscular Volume 92.8 fL (80.0-94.0); Platelet Count 153 10^3/uL (130-400); Red Cell Dist. Width 13.7 % (11.5-14.5)
[2025-08-30 04:29] LABS: Blood Urea Nitrogen 80 mg/dl (9-20); Calcium 7.7 mg/dl (8.4-10.2); Carbon Dioxide 28 mmol/L (22-30); Chloride 99 mmol/L (98-107); Estimated Creatinine Clearance 49 ml/min; Glucose 121 mg/dl (70-99); Potassium 3.8 mmol/L (3.5-5.1); Sodium 135 mmol/L (135-145); eGFR 25.95
[2025-08-30 04:45] LABS: Vitamin D, 25-OH*** 26.4 ng/mL (30-80)
--- NOTE | 2025-08-30 06:42 | PTCARENOTE ---
Patient's mentation improved from previous assessment - remains unsteady on his feet. Patient able to recall events from earlier in day and discuss plan of care. 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
Verdugo. Verdugo removed. Patient voiding in urinal without difficulty.
[2025-08-30 07:54] LABS: Glucose - Point of Care 137 mg/dl (70-99)
[2025-08-30] MEDS: NOVOLOG FLEXPEN-LOW RESISTANCE SC ×2 (08:04→17:05)
[2025-08-30] MEDS: VITAMIN B1 100 MG PO ×2 (08:32→19:45)
[2025-08-30] MEDS: LUMINAL 64.8 MG PO ×3 (08:32→21:23)
[2025-08-30] MEDS: FOLVITE 1 MG PO (08:32)
[2025-08-30] MEDS: HEPARIN 5000 UNITS SC ×3 (08:33→23:28)
[2025-08-30] MEDS: HYDROPHOR 1 APPLIC TOPICAL (08:33)
--- NOTE | 2025-08-30 09:00 | PTCARENOTE ---
Assumed care of patient at 0645. Assessment completed and documented in shift assessment.
Patient is AAOx2-3, withdrawn/flat/forgetful/impulsive/anxious at times. MSAS 2. Bed and chair alarm active. SR to ST on monitor. R AC and R Wrist/FA IV patent. Generalized anasarca. + Pulses. RA, lungs diminished throughout with occasional audible
expiratory wheeze. Obese abdomen, OOB to BR with 1-assist this AM to have BM. Voiding in urinal. Skin intact outside of dry bilateral heel calluses. Went over importance of fluid restriction this AM.
--- NOTE | 2025-08-30 11:02 | W.PN.NEPH.PH ---
Addendum entered and electronically signed by Loren Ortiz MD 08/30/25 12:49:
BP increasing trend, start Amlodipine while ARB on hold for NICOLAS
Original Note:
Today's Communication / Plan
-
see plan
Assessment/Plan
-
Assessment
Colitis
Large-volume diarrhea
Hyponatremia
Anion gap metabolic acidosis
Acute kidney injury
Rhabdomyolysis 11,000
Elevated liver function tests
Chronic alcohol use
Diabetes mellitus type 2
Hypertension
Hyperlipidemia
Plan
Severe hyponatremia -improving appropriately to 135
lift FR to 64ounces/dayy
NICOLAS-suspect ATN from Rhabdo , serologies negative
UA microhematuria and 3+alb , U PCR only 700mg/gm of cr
CT shows severe bilat perirenal edema and mild distension of right intracollecting system and pelvis DD pyelo vs connective tissue
off gallagher, monitor bladder scan
he is polyuric possible from post ATN diuresis phase, cr better today at 3
follow CK is improving to 915, LFTs are better too
cont to hold fibrate, statin and SSRI(which was recently started 3wks ago [employer])
Alcohol withdrawal prophylaxis with Phenobarbital
mild hypocalcemia-mild vit D def-start D3 and po gracie
Bp stable
d/w pt and nurisng
-
-
Date of Service: August 30, 2025
CC / HPI / ROS
-
Chief Complaint:
Diarrhea
History of Present Illness:
cr improving to 3, polyuria, off gallagher last night
sodium up at 135
bps table k normal
Review of Systems:
no cp or sob
no cough
no n/v
Labs
-
Labs:
WBC 3.7 10^3/uL (4.8-10.8) L 08/30/25 03:53
RBC 3.04 10^6/uL (4.70-6.10) L 08/30/25 03:53
Hgb 9.6 g/dL (13.0-18.0) L 08/30/25 03:53
Hct 28.2 % (39.0-52.0) L 08/30/25 03:53
Plt Count 153 10^3/uL (130-400) 08/30/25 03:53
Sodium 135 mmol/L (135-145) 08/30/25 03:53
Potassium 3.8 mmol/L (3.5-5.1) 08/30/25 03:53
Chloride 99 mmol/L (98-107) 08/30/25 03:53
Carbon Dioxide 28 mmol/L (22-30) 08/30/25 03:53
BUN 80 mg/dl (9-20) H 08/30/25 03:53
Creatinine 3.0 mg/dL (0.7-1.3) H 08/30/25 03:53
eGFR 25.95 08/30/25 03:53
Glucose 121 mg/dl (70-99) H 08/30/25 03:53
Calcium 7.7 mg/dl (8.4-10.2) L 08/30/25 03:53
Phosphorus 5.0 mg/dl (2.5-4.5) H 08/29/25 14:15
Albumin 4.1 g/dl (3.5-5.0) 08/29/25 14:15
Physical Exam
-
Vital Signs:
Vital Signs
Temp Pulse Resp BP Pulse Ox
97.9 F 92 11 154/101 96
08/30/25 08:00 08/30/25 10:00 08/30/25 10:00 08/30/25 10:00 08/30/25 09:00
Cardiovascular:: Regular rate and rhythm
Respiratory:: Bilateral: CTA
Lung Excursion:: Normal
Abdomen:: Nontender and Soft
Extremity Edema:: None: Bilateral:
Gallagher Catheter: No
--- NOTE | 2025-08-30 11:34 | W.PN.HOSP.TC ---
Addendum entered and electronically signed by Vale Liu MD 08/30/25 14:28:
Attending�addendum:
I saw and evaluated the patient. I reviewed the resident�s note and agree with findings and plan as documented in the resident�s note.� Family at bedside,�patient seen and examined at bedside, denies any chest pain or shortness of breath, no
abdominal pain, no nausea, no vomiting, no diarrhea or constipation.
Still unsteady.
Physical�exam:
GENERAL : Patient is awake, alert, oriented x3
HEENT: Nonicteric sclerae, PERRLA, EOMI. Oropharynx clear. Moist mucous membranes. Conjunctivae appear well perfused.
CHEST: Chest wall is nontender.
HEART: Regular rate and rhythm without murmurs.
LUNGS: Clear to auscultation bilaterally.
ABDOMEN: Soft, positive bowel sounds, nontender, no organomegaly.
RECTAL: Deferred.
MUSCLES/EXTREMITIES: No abnormal range of motion, no swelling.SKIN: No rash, no excessive bruising, petechiae, or purpura.
NEUROLOGIC: Cranial nerves II-XII intact without motor/sensory deficit.
�
Assessment/plan:
Severe hyponatremia.
Continue to improve.
Currently 135
Acute renal failure.
ATN
Secondary to rhabdomyolysis
Creatinine improving
High anion gap metabolic acidosis.
Possible starvation ketosis
Improving
Transaminitis.
Improved
CODE STATUS: Full code
DVT prophylaxis: Heparin
Diet: Diabetic diet
Family communication: Discussed with family at bedside
Disposition: Downgrade to telemetry
�
Total time spent on today�s encounter was 74 minutes which included time spent in counseling the patient/family regarding diagnosis and treatment plan as listed above, goals of care, and symptom management. Case was discussed with nursing staff,
specialists, and care coordinators/case management. All labs and imaging personally reviewed by me. Remainder the time spent in detailed review of previous records, lab data, imaging, and other medical provider documentation.
Original Note:
Today's Communication/Plan
-
Downgrade to telemetry
FR 1800cc
Assessment / Plan
Assessment / Plan
40-year-old with history of lsl-gglwhie-hzulkfowy diabetes hypertension, hyperlipidemia, hyperlipidemia, obstructive sleep apnea not using CPAP, alcohol use disorder who presents to the Emergency Department with 2 weeks of diarrhea and found to have
NICOLAS as well severe hyponatremia in the ED. Patient also reported bright red blood per rectum in the past week prior to presentation. CT abdomen in the ED was notable for bilateral renal and perirenal edema as well as mild acute pancolitis. Labs
were notable for sodium of 104 HCO3 14 BUN 65 creatinine 6.8 CK 11,000 and high anion gap metabolic acidosis. Nephrology was consulted and started patient on aggressive fluid resuscitation the patient was admitted to the ICU where blood gas was
notable for severe acidosis and patient received bicarb drip, MSAS protocol, continued IV fluids, and IV antibiotics. GI was consulted for diarrhea and ordered stool studies which have so far been negative. During ICU stay patient became agitated
requiring Precedex and phenobarbital taper. Over time sodium continued to improve and creatinine began to come down. Patient was taken off of Precedex due to decrease in agitation. Patient was downgraded to IMU and psychiatry was consulted for
management of depression. Patient continued to improve and he was downgraded to telemetry.
PLAN:
#Severe hyponatremia, resolved
#Hypovolemic hyponatremia due to diarrhea
sodium 104 on presentation
patient alert and oriented and with normal mental status
No history of seizures
on sertraline, on hold, suspect this is a mixture of hypovolemic hyponatremia with polydipsia
S/p replete crystalloids per nephrology 5 L total of NS
-Serum osmole 261 low
-urine osms to 13 low
- urine sodium 15 low
- TSH 3.5
- cortisol random 52
-Monitor serum sodium every 4 hours, improving sodium 135
- Nephrology consult appreciate recs
- 1800 mL FR
Downgraded to telemetry
#Diarrhea, improving
acute to subacute diarrhea and occasionally bloody
History of colonoscopy about 5 years ago which was negative for IBD
CT scan with pancolitis
- C. difficile negative,
-stool cultures pending,
-Campylobacter negative
- stool WBC negative
- fecal calprotectin within normal limit
-Stool O&P
- DC IV Zosyn
- consult GI, appreciate recs
-Imodium as needed
- Diet as tolerated
#NICOLAS, improving creatinine
#Rhabdomyolysis
#High anion gap metabolic acidosis with metabolic alkalosis
Anion gap 20 on presentation
Delta gap 6, metabolic alkalosis likely due to contraction alkalosis due to diarrhea
In the setting of alcohol use rhabdomyolysis, acute renal failure
Lactic acid normal
CR on presentation 6.8 CR today 3.0
suspect ATN in the setting of severe diarrhea, diabetes and ARB use but clearly still volume down.
CPK of 11,000, rhabdo contributing to the NICOLAS, rhabdo in the setting of alcohol use
Magnesium 1.5
- Verdugo
- Hold statin
- urine creatinine 89 urine sodium 15, FENa 1% indeterminate
- IV fluids as above per nephrology
- UA with blood, consistent with rhabdo
- UA microhematuria and 3+alb , check U PCR
- inflammatory panel with RF, CARLITOS, Complement C3/4, ASO, negative
- Monitor CK levels, downtrending
#Transaminitis, downtrending
#Alcohol use disorder, with agitation
#Toxic encephalopathy
#Hepatic steatosis
Pint of vodka per day
last drink [address] with hepatic steatosis and hepatomegaly
AST elevated 4x ALT
Alk phos normal
T. bili L bilirubin 2.0
Likely due to alcohol use disorder and fatty liver
Continue to monitor
- MSAS protocol
- Off Precedex 08/28
#DM II
On Mounjaro
- hold metformin
- sliding scale insulin
#Asthma
#EUNICE
CPAP at night
Albuterol nebulizers as needed
#Depression
Patient recently started sertraline
Hold sertraline due to hyponatremia
- Psych consult appreciate recs
DVT prophylaxis: Heparin subcu
CODE STATUS: Full code
Anticipated Discharge: 24 - 48 hours
Subjective/Interval History
-
Patient reports doing better, with less episodes of diarrhea. Patient feels less agitated and tremulous. He is concerned about the fluid restriction and wondering if he can increase that. Otherwise no fevers chills, no abdominal pain no nausea no
vomiting no chest pain no shortness of breath. Date of Service: August 30, 2025
Objective Data
-
Labs:
Laboratory Results
08/30/25
03:53
WBC 3.7 L
Hgb 9.6 L
Hct 28.2 L
Plt Count 153
Sodium 135
Potassium 3.8
Chloride 99
Carbon Dioxide 28
BUN 80 H
Creatinine 3.0 H
Glucose 121 H
Calcium 7.7 L
Vital Signs:
Vital Signs
Temp Pulse Resp BP Pulse Ox
97.9 F 92 11 154/101 96
08/30/25 08:00 08/30/25 10:00 08/30/25 10:00 08/30/25 10:00 08/30/25 09:00
I&O
08/29/25 08/30/25 08/31/25
06:59 06:59 06:59
Intake Total 1229.6 / 1297.1 1762.0 / 1762.0 1080 / 1080
Output Total 5480 / 6105 5650 / 5650 675 / 675
Balance -4250.4 / -4807.9 -3888.0 / -3888.0 405 / 405
Review of Systems
-
History Source: Patient
Constitutional: Denies Fever or Chills
EENT: Denies Sore Throat or Runny Nose
Respiratory: Denies Cough or Wheezing
Cardiac: Denies Chest Pain or Palpitations
Abdomen/GI: Reports Diarrhea; Denies Abdominal Pain, Nausea, Vomiting or Constipated
Genitourinary: Denies Dysuria
Neuro: Denies Dizzy, Headache or Weakness
Physical Exam
-
General: Well Developed, Well Nourished, No Apparent Distress and Comfortable; Negative Fever
HEENT: Normocephalic and Atraumatic
Respiratory: Clear to Auscultation and Non Labored Respirations; Negative Wheezes or Crackles
Cardiac: Regular Rhythm and S1/S2; Negative Murmur
GI: Soft, Nontender, Nondistended and Normal Bowel Sounds
Musculoskeletal: No Clubbing and No Edema
Skin: Warm and Dry
Neuro: Awake and Alert
[2025-08-30 11:36] LABS: Glucose - Point of Care 151 mg/dl (70-99)
--- NOTE | 2025-08-30 12:06 | PTCARENOTE ---
Received pt from off-going RN @ approx 1100; assessment per charting-see flow sheet. Remains OOB to chair, tolerating meals and activity. Chair alarm active. Call ruiz rodriguez in reach.
[2025-08-30] MEDS: NOVOLOG FLEXPEN-LOW RESISTANCE 1 UNITS SC (12:27)
[2025-08-30] MEDS: NORVASC 5 MG PO (13:39)
[2025-08-30] MEDS: VITAMIN D3 (cholecalciferol) 50 MCG PO (13:39)
--- NOTE | 2025-08-30 15:54 | CM ---
Discharge POC: Anticipate home with no needs.
--- NOTE | 2025-08-30 16:40 | PTCARENOTE ---
Report given to 4W RN and pt. transported via stretcher on electronic device monitor w transport to rm [id number]. Belongings and brought to new room. No further needs from this RN.
[2025-08-30 17:04] LABS: Glucose - Point of Care 123 mg/dl (70-99)
--- NOTE | 2025-08-30 17:13 | PTCARENOTE ---
Patient arrived from IMU via stretcher, with at the bedside. AAO x 4. Flat affect, withdrawn. BP elevated--not within parameters to administer PRN hydralazine. Sinus tachycardia on the monitor. OOB standby assist. Ambulating the halls with
. Chair alarm on, in recliner. Per patient, he prefers to sleep in the recliner due to orthopnea. Patient oriented to room. Dinner ordered. Call melchor and personal belongings within reach.
--- NOTE | 2025-08-30 19:36 | W.PN.UPDATE ---
Update Note
Progress Note Update
met with pt prior to transfer out of ICU. states he is feeling better, visibly less tense. I reviewed with him what his had told me about how angry he was with her at time of admission. States he does not remember it well, but still feels like
he came here for blood in stool and it turned into a detox. I eplained again the remarkably scary blood chemitry results at the time of admission, how close he came to dialysis, how much damage such low sodium can do. not sure he is convinced--says
he feels control was taken from him. I agreed, noting that his cognitive capacity was imaired as well.
Will continue to discuss with pt and ongoing supports for sobriety, treatment of depression
[2025-08-30] MEDS: OSCAL CAL 500 500 MG PO (19:45)
[2025-08-30] MEDS: APRESOLINE 10 MG IV (19:45)
[2025-08-30 21:36] LABS: Glucose - Point of Care 121 mg/dl (70-99)
[2025-08-31] MEDS: APRESOLINE 10 MG IV (03:04)
[2025-08-31 03:19] VITALS: BP 164/110
[2025-08-31 05:57] VITALS: BP 152/101
[2025-08-31 07:45] VITALS: BP 165/107
[2025-08-31 08:17] LABS: Glucose - Point of Care 164 mg/dl (70-99)
[2025-08-31] MEDS: HEPARIN 5000 UNITS SC (08:20)
[2025-08-31] MEDS: FOLVITE 1 MG PO (08:20)
[2025-08-31] MEDS: NOVOLOG FLEXPEN-LOW RESISTANCE 1 UNITS SC (08:21)
[2025-08-31] MEDS: HYDROPHOR TOPICAL (08:21)
[2025-08-31] MEDS: LUMINAL 64.8 MG PO (08:22)
[2025-08-31] MEDS: VITAMIN D3 (cholecalciferol) 50 MCG PO (08:23)
[2025-08-31] MEDS: VITAMIN B1 100 MG PO (08:23)
[2025-08-31] MEDS: NORVASC 5 MG PO (08:23)
[2025-08-31] MEDS: OSCAL CAL 500 500 MG PO (08:23)
[2025-08-31 09:05] LABS: Hematocrit 31.3 % (39.0-52.0); Hemoglobin 10.1 g/dL (13.0-18.0); Mean Corp Hgb Conc. 32.3 g/dL (33.0-37.0); Mean Corpuscular Volume 99.4 fL (80.0-94.0); Platelet Count 184 10^3/uL (130-400); Red Cell Dist. Width 14.4 % (11.5-14.5)
--- NOTE | 2025-08-31 09:29 | W.PN.HOSP.TC ---
Addendum entered and electronically signed by Vale Liu MD 08/31/25 11:12:
Attending�addendum:
I saw and evaluated the patient. I reviewed the resident�s note and agree with findings and plan as documented in the resident�s note.� Downgraded to tele,�patient seen and examined at bedside, denies any chest pain or shortness of breath, no
abdominal pain, no nausea, no vomiting, no diarrhea or constipation.
Still unsteady.
Physical�exam:
GENERAL : Patient is awake, alert, oriented x3
HEENT: Nonicteric sclerae, PERRLA, EOMI. Oropharynx clear. Moist mucous membranes. Conjunctivae appear well perfused.
CHEST: Chest wall is nontender.
HEART: Regular rate and rhythm without murmurs.
LUNGS: Clear to auscultation bilaterally.
ABDOMEN: Soft, positive bowel sounds, nontender, no organomegaly.
RECTAL: Deferred.
MUSCLES/EXTREMITIES: No abnormal range of motion, no swelling.SKIN: No rash, no excessive bruising, petechiae, or purpura.
NEUROLOGIC: Cranial nerves II-XII intact without motor/sensory deficit.
�
Assessment/plan:
Severe hyponatremia.
Continue to improve.
Acute renal failure.
ATN
Secondary to rhabdomyolysis
Creatinine improving
High anion gap metabolic acidosis.
Possible starvation ketosis
Improving
Transaminitis.
Improved
Hypertension
Started on Norvasc
CODE STATUS: Full code
DVT prophylaxis: Heparin
Diet: Diabetic diet
Family communication: Discussed with family at bedside
Disposition: Patient can be discharged if cleared by nephrology
�
Total time spent on today�s encounter was 55 minutes which included time spent in counseling the patient/family regarding diagnosis and treatment plan as listed above, goals of care, and symptom management. Case was discussed with nursing staff,
specialists, and care coordinators/case management. All labs and imaging personally reviewed by me. Remainder the time spent in detailed review of previous records, lab data, imaging, and other medical provider documentation.
Original Note:
Today's Communication/Plan
-
BP control
Dispo plan
Assessment / Plan
Assessment / Plan
40-year-old with history of psy-mjvpedy-whqlhtmly diabetes hypertension, hyperlipidemia, hyperlipidemia, obstructive sleep apnea not using CPAP, alcohol use disorder who presents to the Emergency Department with 2 weeks of diarrhea and found to have
NICOLAS as well severe hyponatremia in the ED. Patient also reported bright red blood per rectum in the past week prior to presentation. CT abdomen in the ED was notable for bilateral renal and perirenal edema as well as mild acute pancolitis. Labs
were notable for sodium of 104 HCO3 14 BUN 65 creatinine 6.8 CK 11,000 and high anion gap metabolic acidosis. Nephrology was consulted and started patient on aggressive fluid resuscitation the patient was admitted to the ICU where blood gas was
notable for severe acidosis and patient received bicarb drip, MSAS protocol, continued IV fluids, and IV antibiotics. GI was consulted for diarrhea and ordered stool studies which have so far been negative. During ICU stay patient became agitated
requiring Precedex and phenobarbital taper. Over time sodium continued to improve and creatinine began to come down. Patient was taken off of Precedex due to decrease in agitation. Patient was downgraded to IMU and psychiatry was consulted for
management of depression. Patient continued to improve and he was downgraded to telemetry.
PLAN:
#Severe hyponatremia, resolved
#Hypovolemic hyponatremia due to diarrhea
sodium 104 on presentation
patient alert and oriented and with normal mental status
No history of seizures
on sertraline, on hold, suspect this is a mixture of hypovolemic hyponatremia with polydipsia
S/p replete crystalloids per nephrology 5 L total of NS
-Serum osmole 261 low
-urine osms to 13 low
- urine sodium 15 low
- TSH 3.5
- cortisol random 52
-Monitor serum sodium every 4 hours, improving sodium 137
- Nephrology consult appreciate recs
- 1800 mL FR
Downgraded to telemetry
#Diarrhea, improving
acute to subacute diarrhea and occasionally bloody
History of colonoscopy about 5 years ago which was negative for IBD
CT scan with pancolitis
- C. difficile negative,
-stool cultures pending,
-Campylobacter negative
- stool WBC negative
- fecal calprotectin within normal limit
-Stool O&P
- DC IV Zosyn
- consult GI, appreciate recs
-Imodium as needed
- Diet as tolerated
#NICOLAS, improving creatinine
#Rhabdomyolysis
#High anion gap metabolic acidosis with metabolic alkalosis
Anion gap 20 on presentation
Delta gap 6, metabolic alkalosis likely due to contraction alkalosis due to diarrhea
In the setting of alcohol use rhabdomyolysis, acute renal failure
Lactic acid normal
CR on presentation 6.8 CR today 1.7
suspect ATN in the setting of severe diarrhea, diabetes and ARB use but clearly still volume down.
CPK of 11,000, rhabdo contributing to the NICOLAS, rhabdo in the setting of alcohol use
Magnesium 1.5
- Verdugo DC 08/29
- Hold statin
- urine creatinine 89 urine sodium 15, FENa 1% indeterminate
- IV fluids as above per nephrology
- UA with blood, consistent with rhabdo
- UA microhematuria and 3+alb , check U PCR
- inflammatory panel with RF, CARLITOS, Complement C3/4, ASO, negative
- Monitor CK levels, downtrending
- Mild hypocalcemia, vitamin D and p.o. calcium per nephro
#Hypertension
Hold ARB's for NICOLAS
-IV hydralazine as needed
- Amlodipine 5 mg
#Transaminitis, downtrending
#Alcohol use disorder, with agitation
#Toxic encephalopathy
#Hepatic steatosis
Pint of vodka per day
last drink [address] with hepatic steatosis and hepatomegaly
AST elevated 4x ALT
Alk phos normal
T. bili L bilirubin 2.0
Likely due to alcohol use disorder and fatty liver
Continue to monitor
- MSAS protocol
- Off Precedex 08/28
#DM II
On Mounjaro
- hold metformin
- sliding scale insulin
#Asthma
#EUNICE
CPAP at night
Albuterol nebulizers as needed
#Depression
Patient recently started sertraline
Hold sertraline due to hyponatremia
- Psych consult appreciate recs
DVT prophylaxis: Heparin subcu
CODE STATUS: Full code
Dispo: Home
Anticipated Discharge: 24 - 48 hours
Subjective/Interval History
-
Patient seen at bedside, reports doing well no tremors no chills. No headaches and no pain despite increases in blood pressure, reports improving diarrhea. Date of Service: August 31, 2025
Objective Data
-
Labs:
Laboratory Results
08/31/25
08:34
WBC 4.6 L
Hgb 10.1 L
Hct 31.3 L
Plt Count 184 D
Sodium Pending
Potassium Pending
Chloride Pending
Carbon Dioxide Pending
BUN Pending
Creatinine Pending
Glucose Pending
Calcium Pending
Total Bilirubin Pending
AST Pending
ALT Pending
Alkaline Phosphatase Pending
Vital Signs:
Vital Signs
Temp Pulse Resp BP Pulse Ox
97.9 F 93 18 165/107 96
08/31/25 07:45 08/31/25 07:45 08/31/25 07:45 08/31/25 07:45 08/31/25 07:45
I&O
08/30/25 08/31/25 09/01/25
06:59 06:59 06:59
Intake Total 1762.0 / 1762.0 1560 / 1560
Output Total 5650 / 5650 675 / 675
Balance -3888.0 / -3888.0 885 / 885
Review of Systems
-
History Source: Patient
Constitutional: Denies Fever or Chills
EENT: Denies Sore Throat or Runny Nose
Respiratory: Denies Cough or Trouble Breathing
Cardiac: Denies Chest Pain or Palpitations
Abdomen/GI: Denies Abdominal Pain, Nausea, Vomiting, Diarrhea or Constipated
Genitourinary: Denies Dysuria
Neuro: Denies Headache
Physical Exam
-
General: Well Developed, Well Nourished, No Apparent Distress, Comfortable and Morbidly Obese; Negative Fever
HEENT: Normocephalic and Atraumatic
Respiratory: Clear to Auscultation and Non Labored Respirations; Negative Wheezes or Crackles
Cardiac: Regular Rhythm and S1/S2; Negative Murmur
GI: Soft, Nontender, Nondistended and Normal Bowel Sounds
Musculoskeletal: No Clubbing and No Edema
Skin: Warm and Dry
Neuro: Awake and Alert
[2025-08-31 09:44] LABS: ALT (SGPT) 55 U/L (0-50); AST (SGOT) 95 U/L (17-59); Albumin 4.2 g/dl (3.5-5.0); Alkaline Phosphatase 60 U/L (38-126); Blood Urea Nitrogen 53 mg/dl (9-20); Calcium 8.6 mg/dl (8.4-10.2); Carbon Dioxide 29 mmol/L (22-30); Chloride 97 mmol/L (98-107); Estimated Creatinine Clearance 89 ml/min; Glucose 199 mg/dl (70-99); Potassium 4.2 mmol/L (3.5-5.1); Sodium 137 mmol/L (135-145); Total Protein 7.0 g/dl (6.3-8.2); eGFR 51.30
[2025-08-31 10:55] VITALS: BP 118/75
--- NOTE | 2025-08-31 11:48 | W.DCSUMMARY ---
Addendum entered and electronically signed by Vale Liu MD 08/31/25 13:15:
Attending�addendum:
I saw and evaluated the patient. I reviewed the resident�s note and agree with findings and plan as documented in the resident�s note.� Downgraded to tele,�patient seen and examined at bedside, denies any chest pain or shortness of breath, no
abdominal pain, no nausea, no vomiting, no diarrhea or constipation.
Still unsteady.
Physical�exam:
GENERAL : Patient is awake, alert, oriented x3
HEENT: Nonicteric sclerae, PERRLA, EOMI. Oropharynx clear. Moist mucous membranes. Conjunctivae appear well perfused.
CHEST: Chest wall is nontender.
HEART: Regular rate and rhythm without murmurs.
LUNGS: Clear to auscultation bilaterally.
ABDOMEN: Soft, positive bowel sounds, nontender, no organomegaly.
RECTAL: Deferred.
MUSCLES/EXTREMITIES: No abnormal range of motion, no swelling.SKIN: No rash, no excessive bruising, petechiae, or purpura.
NEUROLOGIC: Cranial nerves II-XII intact without motor/sensory deficit.
�
Assessment/plan:
Severe hyponatremia.
Continue to improve.
Acute renal failure.
ATN
Secondary to rhabdomyolysis
Creatinine improving
High anion gap metabolic acidosis.
Possible starvation ketosis
Improving
Transaminitis.
Improved
Hypertension
Started on Norvasc
CODE STATUS: Full code
DVT prophylaxis: Heparin
Diet: Diabetic diet
Family communication: Discussed with family at bedside
Disposition: cleared to be discharged home
�
Total time spent on today�s encounter was 40 minutes which included time spent in counseling the patient/family regarding diagnosis and treatment plan as listed above, goals of care, and symptom management. Case was discussed with nursing staff,
specialists, and care coordinators/case management. All labs and imaging personally reviewed by me. Remainder the time spent in detailed review of previous records, lab data, imaging, and other medical provider documentation.
Original Note:
Documented by User: Raul Andres MD, Resident 08/31/25 12:08
Discharge Summary
Discharge Data
Date of Admission: 08/25/25
Date of Discharge: 08/31/25
-
Pending Results: No
Hospital Course
Discharging Physician :
Dr. Liu
Dr. Andres
Disposition :
Home
Primary care physician :
Homer Aquino
Principal Discharge diagnosis :
Acute renal failure due to rhabdomyolysis, hyponatremia, alcohol withdrawal
Chronic Discharge diagnosis :
Essential HTN
Hypercholesterolemia
NIDDM
Morbid obesity
EUNICE
Asthma
Alcohol dependence
Hospital Course :
Mr. Leslie is a 40-year-old with history of [id number] diabetes hypertension, hyperlipidemia, hyperlipidemia, obstructive sleep apnea not using CPAP, alcohol use disorder who presents to the Emergency Department with 2 weeks of diarrhea
and found to have NICOLAS as well severe hyponatremia in the ED. Patient also reported bright red blood per rectum in the past week prior to presentation. CT abdomen in the ED was notable for bilateral renal and perirenal edema as well as mild acute
pancolitis. Labs were notable for sodium of 104 HCO3 14 BUN 65 creatinine 6.8 CK 11,000 and high anion gap metabolic acidosis with metabolic alkalosis with 1+ urine ketones no blood ketones.
Nephrology was consulted and started patient on aggressive fluid resuscitation the patient was admitted to the ICU where blood gas was notable for severe acidosis and patient received bicarb drip, MSAS protocol, thiamine, folic acid, fluid
restriction, and IV antibiotics. GI was consulted for diarrhea and ordered stool studies which were been negative. Patient was started on IV Zosyn prior to negative stool studies which was discontinued after negative studies. Patient was given
Imodium to help control diarrhea, which decreased over time with no more episodes of bloody bowel movements.
During ICU stay patient became agitated requiring Precedex and phenobarbital taper for over 2 days. Patient was seen by [facility] agreed to outpatient management of alcohol use. Over time sodium continued to improve with the addition of 3% saline and
tolvaptan and creatinine began to come down to 1.7 at discharge. Patient was also noted to have elevated troponins which did not uptrend and remained flat, likely caused by demand ischemia. Patient was taken off of Precedex due to decrease in
agitation.
Patient was downgraded to IMU and psychiatry was consulted for management of depression. Patient and family psychiatry decided on no medication management per continue talk therapy. Patient continued to improve and he was downgraded to telemetry.
Nephrology started patient on calcium channel katherin in place of ARB which was held along with Jardiance due to NICOLAS. Patient also presented with elevated liver enzymes AST greater than ALT and statin and fibrate were held. Patient was evaluated
by physical therapy and deemed to be safe to discharge home and at discharge his vital signs showed that he was afebrile hypertensive saturating well, and labs showed sodium 137 HCO3 29 creatinine 1.7 mildly elevated liver enzymes, CK 481. Patient
sent home with outpatient follow-up with [facility].
Important imaging findings :
CT abdomen pelvis 08/25/2025:
1. SEVERE BILATERAL RENAL and PERIRENAL EDEMA. Mild distention of the right intrarenal collecting system and right renal pelvis. Diagnostic possibilities are (1) acute bilateral infectious pyelonephritis or (2) an acute inflammatory renal disease
(vasculitis or connective tissue disease).
2. MILD ACUTE PANCOLITIS (either infectious or inflammatory in etiology).
3. Severe diffuse hepatic steatosis.
4. Severe hepatomegaly.
5. Moderate splenomegaly.
6. Mild acute cystitis.
7. 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
Chest x-ray 08/25/2025:
IMPRESSION:
1. Moderate elevation of the anterior right hemidiaphragm.
2. Normal heart size without evidence for acute pulmonary edema.
3. No radiographic evidence for pneumonia or pleural effusion
Procedure findings :
Discharge Plan
-
Patient Disposition: Home (Routine Discharge)
Discharge Diagnosis/Procedures: Hyponatremia, acute renal failure, acute alcohol withdrawal
Condition: Good
Diet: As tolerated
Activity: As tolerated
Driving Restrictions: No driving for 24 hours
Bathing Restrictions: None
Referrals:
Homer Aquino MD [Family Provider, Family Practice] - in less than 1 week
Additional Discharge Medication Instructions: Please consult PCP before restarting any medications, follow-up with [facility] who will be emailing you, [facility] in [place]
Prescriptions:
New
amlodipine 5 mg Tablet
5 mg PO DAILY Qty: 30 0RF
Continued
atorvastatin 40 mg Tablet
40 mg PO DAILY
metformin 1,000 mg Tablet
1,000 mg PO DAILY
gabapentin 100 mg Capsule
100 mg PO DAILY
fenofibrate 150 mg Capsule
145 mg PO DAILY
Mounjaro 7.5 mg/0.5 mL Pen Injector
7.5 mg SC QWEEK
Discontinued
glipizide 10 mg Tablet
10 mg PO DAILY
sertraline 25 mg Tablet
25 mg PO DAILY
olmesartan 20 mg Tablet
20 mg PO DAILY
Jardiance 10 mg Tablet
10 mg PO DAILY
Discharge Orders:
Discharge Patient (As Directed); Ordered 08/31/25
Ordered By: Vale Liu
Discharge Date and Time
Print Language: INDONESIAN

Documented by User: Vale Liu MD 08/31/25 13:15
Discharge Summary
Discharge Data
Date of Admission: 08/25/25
Date of Discharge: 08/31/25
Discharge Plan
-
Patient Disposition: Home (Routine Discharge)
Discharge Diagnosis/Procedures: Hyponatremia, acute renal failure, acute alcohol withdrawal
Condition: Good
Diet: As tolerated
Activity: As tolerated
Driving Restrictions: No driving for 24 hours
Bathing Restrictions: None
Referrals:
Homer Aquino MD [Family Provider, Family Practice] - in less than 1 week
Additional Discharge Medication Instructions: Please consult PCP before restarting any medications, follow-up with [facility] who will be emailing you, [facility] in [place]
Prescriptions:
New
amlodipine 5 mg Tablet
5 mg PO DAILY Qty: 30 0RF
Continued
atorvastatin 40 mg Tablet
40 mg PO DAILY
metformin 1,000 mg Tablet
1,000 mg PO DAILY
gabapentin 100 mg Capsule
100 mg PO DAILY
fenofibrate 150 mg Capsule
145 mg PO DAILY
Mounjaro 7.5 mg/0.5 mL Pen Injector
7.5 mg SC QWEEK
Discontinued
glipizide 10 mg Tablet
10 mg PO DAILY
sertraline 25 mg Tablet
25 mg PO DAILY
olmesartan 20 mg Tablet
20 mg PO DAILY
Jardiance 10 mg Tablet
10 mg PO DAILY
Discharge Orders:
Discharge Patient (As Directed); Ordered 08/31/25
Ordered By: Vale Liu
Discharge Date and Time
Print Language: INDONESIAN
--- NOTE | 2025-08-31 11:56 | CM ---
Home today with spouse, patient was seen by Ramsey from [facility] and plan is for kevin to followup with [facility] in [place], patient has been provided with details of program, per Ramsey at [facility].
Plan; Home with spouse today and followup with outpatient treatment.
[2025-08-31 12:09] LABS: Glucose - Point of Care 120 mg/dl (70-99)
[2025-08-31] MEDS: NOVOLOG FLEXPEN-LOW RESISTANCE SC (12:10)
[2025-08-31] MEDS: FLUZONE (6 mos+) 2025-2026 FORMULA 0.5 ML IM (12:37)
== END 2025-08-31 13:20 | disposition home or self-care (01) | DRG 682 ==
LOC: 4 WEST ACU 22:58
PROVIDERS: Emergency Medicine; Internal Medicine; Internal Medicine Nephrology; Nurse Practitioner Adult Health; Nurse Practitioner Primary Care; Student in an Organized Health Care Education/Training Program; ADMITTING PHYSICIAN Internal Medicine; ATTENDING PHYSICIAN General Practice; CONSULT PHYSICIAN Internal Medicine Critical Care Medicine; CONSULT PHYSICIAN Internal Medicine Gastroenterology; CONSULT PHYSICIAN Psychiatry & Neurology Psychiatry; CONSULT PHYSICIAN Specialist; EMERGENCY PHYSICIAN Emergency Medicine; FAMILY PHYSICIAN Family Medicine
PROC: 3E02340 Introduction of Influenza Vaccine into Muscle, Percutaneous Approach (ICD-10-PCS; 2025-08-31)
DX: N17.0 Acute kidney failure with tubular necrosis (principal); G92.9 Unspecified toxic encephalopathy; E87.1 Hypo-osmolality and hyponatremia; F10.239 Alcohol dependence with withdrawal, unspecified; K92.2 Gastrointestinal hemorrhage, unspecified; M62.82 Rhabdomyolysis; F33.9 Major depressive disorder, recurrent, unspecified; N30.00 Acute cystitis without hematuria; I24.89 Other forms of acute ischemic heart disease; D68.9 Coagulation defect, unspecified; Z68.41 Body mass index [BMI] 40.0-44.9, adult; E87.4 Mixed disorder of acid-base balance; K70.10 Alcoholic hepatitis without ascites; E11.40 Type 2 diabetes mellitus with diabetic neuropathy, unspecified; E78.00 Pure hypercholesterolemia, unspecified; E86.0 Dehydration; F41.9 Anxiety disorder, unspecified; K76.0 Fatty (change of) liver, not elsewhere classified; R16.1 Splenomegaly, not elsewhere classified; M43.17 Spondylolisthesis, lumbosacral region; M47.817 Spondylosis without myelopathy or radiculopathy, lumbosacral region; K21.9 Gastro-esophageal reflux disease without esophagitis; K42.9 Umbilical hernia without obstruction or gangrene; E83.42 Hypomagnesemia; G47.33 Obstructive sleep apnea (adult) (pediatric); E66.01 Morbid (severe) obesity due to excess calories; E83.51 Hypocalcemia; E11.65 Type 2 diabetes mellitus with hyperglycemia; D64.9 Anemia, unspecified; D69.6 Thrombocytopenia, unspecified; I10 Essential (primary) hypertension; K52.9 Noninfective gastroenteritis and colitis, unspecified; Z79.84 Long term (current) use of oral hypoglycemic drugs; Z79.85 Long-term (current) use of injectable non-insulin antidiabetic drugs; Z79.899 Other long term (current) drug therapy; Z87.891 Personal history of nicotine dependence; Z86.16 Personal history of COVID-19; Z23 Encounter for immunization; Z56.0 Unemployment, unspecified; Z91.199 Patient's noncompliance with other medical treatment and regimen due to unspecified reason
CPT/HCPCS: 36600; 51798; 71046; 74176; 80048; 80053; 80069; 80179; 81003; 81015; 82040; 82077; 82248; 82306; 82533; 82550; 82570; 82652; 82805; 82962; 82977; 83036; 83516; 83605; 83615; 83735; 83930; 83935; 83993; 84100; 84132; 84156; 84300; 84302; 84443; 84484; 84550; 85025; 85027; 85610; 85652; 85730; 86038; 86160; 86430; 86850; 86900; 86901; 87045; 87046; 87077; 87324; 87328; 87329; 87427; 87449; 89055; 90656; 93005; 94640; 96361; 96374; 97162; 97166; 99291; G0008